=== PATIENT | male | born 1940 | race Caucasian/White ===

== ENCOUNTER 2017-06-06 14:09 | Inpatient (IN) | payer MEDICARE, MEDICAID, SELFPAY ==
[2017-06-06 14:10] VITALS: BP 124/65; PULSE 91; RESP 18; TEMP 36.4; O2SAT 97; BMI 42.7
--- NOTE | 2017-06-06 14:44 | EKG12_ITS ---
Test Reason : DYSRHYTHMIA Blood Pressure : / mmHG Vent. Rate : 098 BPM Atrial Rate : 093 BPM P-R Int : 000 ms QRS Dur : 088 ms QT Int : 362 ms P-R-T Axes : 000 033 065 degrees QTc Int : 462 ms Atrial fibrillation Low voltage QRS Abnormal ECG Confirmed by DANIEL JACKSON, BRIANDA ([id number]), medical editor STEPHANY WILLS ([id number]) on 06/09/2017 1:46:42 PM Referred By: ARI Confirmed By:BRIANDA SANCHEZ MD
--- NOTE | 2017-06-06 14:55 | RAD_ITS ---
STUDY: X-RAY CHEST REASON FOR EXAM: Male, 77 years old. Chest pain TECHNIQUE: Single AP portable view of the chest. COMPARISON: March 25, 2017 chest x-ray FINDINGS: Interstitial markings are prominent but improved since prior study. There is no demonstrated pleural abnormality. Normal size heart. Normal mediastinum and hany. Normal visualized pulmonary arteries. There is atherosclerotic calcification of the aortic arch with tortuosity. There are diffuse degenerative changes of the visualized thoracic spine. Normal visualized ribs, clavicles, and shoulders. There is postoperative change in the upper abdomen. RAD/Chest 1 View (Portable) IMPRESSION: Findings suggestive of mild interstitial edema. Improved since prior study. Electronically Signed: Kelin Waterman MD at 15:42 EST Tel , Service support ,
[2017-06-06 15:22] LABS: International Normalized Ratio 2.3; Prothrombin Time (Protime)PT. 24.1 SECONDS (11.7-14.9)
[2017-06-06 15:23] LABS: Partial Thromboplast Time 49.1 Seconds (24.1-36.2)
--- NOTE | 2017-06-06 15:27 | NURSING ---
NO LW OR POA
[2017-06-06 15:28] LABS: Absolute Lymphocyte Count 0.93 X10^3/ul (0.83-4.51); Absolute Neutrophil Count 5.4 X10^3/uL (2.0-7.7); Basophil# 0.04 X10^3/uL; Basophil% 0.5 % (0-1); Eosinophil# 0.32 X10^3/uL; Eosinophils% 4.2 % (0-5); Hematocrit 34.4 % (40-54); Lymphocyte # 0.93 X10^3/ul (4.0); Lymphocyte % 12.3 % (19-41); Mean Corpuscular Hgb 32.2 pg (27.0-32.0); Mean Corpuscular Volume 100.6 fL (80-94); Mean Platelet Vol. 8.9 fl (6.2-12.0); Monocyte# 0.77 X10^3/uL; Monocyte% 10.2 % (0-10); Neutrophil # 5.39 X10^3/uL (2.7-7.7); Neutrophil % 71.1 % (47-70); Platelet Count 246 K/mm3 (150-450); RBC Distribution Width CV 13.9 % (11.6-14.6); RBC Distribution Width SD 50.2 fl (35.1-43.9); Red Blood Count 3.42 M/mm3 (4.6-6.2); White Blood Count 7.6 K/mm3 (4.4-11.0)
[2017-06-06 15:29] LABS: POSITIVE COUNT NO; POSITIVE DIFFERENTIAL NO; POSITIVE MORPHOLOGY NO
[2017-06-06 15:32] LABS: AST(SGOT) 16 U/L (15-37); Alanine Aminotransfer ALT/SGPT 23 U/L (16-61); Albumin, Serum 3.7 g/dL (3.2-5.0); Alkaline Phosphatase 91 U/L (45-117); Anion Gap 11 (5-15); BUN 24 mg/dL (7-18); BUN/Creat Ratio 13.3 RATIO (10-20); Calcium,Total 8.8 mg/dL (8.5-10.1); Chloride 105 mmol/L (98-107); Creatinine, Serum 1.81 mg/dL (0.70-1.30); EST Glomerular Filtration Rate 39 mL/min (>60); Est Glom Filt Rate - Afr Amer 47 mL/min (>60); Estimated Creatinine Clearance 33.07 ml/min; Globulin 3.8 g/dL (2.2-4.2); Glucose 115 mg/dL (74-106); Lipase 150 U/L (73-393); Potassium 4.4 mmol/L (3.5-5.1); Protein, Total 7.5 g/dL (6.4-8.2); Sodium Level 138 mmol/L (136-145)
[2017-06-06 15:43] LABS: Lactic Acid 2.9 mmol/L (0.4-2.0)
[2017-06-06 15:56] LABS: BNP,B-Type NATRIURETIC PEPTIDE 101.6 pg/mL (0-100)
[2017-06-06 15:58] LABS: Bacteria 0 SEEN /hpf (None Seen); Mucous, Urine 0 SEEN /hpf (<or=2+); Red Blood Cells-Urine 0 SEEN /hpf (0-5); White Blood Cells 0 SEEN /hpf (0-5)
[2017-06-06 16:08] LABS: Color, Urine Yellow (Yellow); Glucose, Dipstick Normal (Normal); Ketone-Dipstick Negative (Negative); Leukocyte Esterase-Dipstick Negative /ul (Negative); Nitrite-Dipstick Negative (Negative); Occult Blood-Urine Negative /ul (Negative); Protein-Dipstick Negative (Negative); Urine Bilirubin Dipstick Negative (Negative); Urine Clarity Sl. Cloudy (Clear); Urine Urobilinogen Normal (Normal)
[2017-06-06 16:14] LABS: Squamous Epithelial Cells - UA 0-5 SEEN /hpf (0-5)
--- NOTE | 2017-06-06 16:27 | NURSING ---
DR MITCHELL FOR DR CHAPMAN
--- NOTE | 2017-06-06 16:47 | ED.VISSUMM ---
- ER Visit Summary Date of Service: 06/06/17 Chief Complaint: Leg swelling History of Present Illness: The patient is a 77 M who presents with bilateral leg swelling. He has been recently treated for lower leg cellulitis initially with cefdinir and later by Bactrim. Last dose was last night. Family states that he was admitted in March and had lymphedema but after hospitalization his ankles returned to normal. They have progressively worsened. He notes chronic spasms in the legs that is not new. He states that he has been treated with Lasix 40 mg twice a day to help the edema. He has not been able to tolerate wraps or compression stockings. He has pulmonary hypertension. He has a history of Noé, obstructive sleep apnea, type 2 diabetes, morbid obesity, and atrial fibrillation. No recent fevers. Echocardiogram in March showed ejection fraction of 60%. History is somewhat hard to obtain as multiple family members attempting to tell the story but the timeline is significantly disjointed and is very hard to follow. Physical Examination: Afebrile vital signs are stable Gen: Well-nourished well-developed Keshia obese Head: Normocephalic atraumatic Eyes: Perrl EOMI ENT: TMs clear no rhinorrhea moist mucous membranes Neck: Supple no lymphadenopathy no JVD nontender CVS: Usually irregular rhythm no murmurs normal S1-S2 Respiratory: No distress mild rales at bases chest nontender Abdomen: Soft nontender nondistended normal bowel sounds no masses Back: Nontender Extremity: Lateral lymphedema. There is faint erythema of the anterior legs that blanches seems to improve with elevation. Feet are swollen legs are swollen thighs are edematous Skin: Normal color no rash Neuro: alert orientated to place year and person Test Results: EKG shows atrial fibrillation at a rate of 98. White count is normal. Creatinine 1.81. Troponin negative nitrate peptide 101.6 lactic acid 2.9. Chest showed mild vascular congestion Emergency Department Course and Treatment: Patient's creatinine had been normal at the end of March. Is unclear exactly why this is bumped. I do not find the patient to be septic despite his lactic acid. He has no obvious source of infection no white count and no fever. This could be in part due to metformin and renal function. Our plan will be admission for diuresis. Impression: 1. Lymphedema 2. Acute kidney injury This note was generated with Dragon dictation software. It may contain incorrect words, spelling, and punctuation that were not noted in review of the chart prior to signing ED Disposition - Plan for ED Patient: Chief Complaint: Cellulitis Referrals: Mary Lou Flores DO [Primary Care Provider] -
[2017-06-06 16:57] VITALS: BP 153/90; PULSE 81; PULSE 83; RESP 19; O2SAT 96
[2017-06-06] MEDS: diazePAM 5 MG Tablet PO ×2 (17:03→21:12)
--- NOTE | 2017-06-06 17:10 | NURSING ---
DR MITCHELL IN ER
--- NOTE | 2017-06-06 17:41 | NURSING ---
DR MITCHELL IN ER [id number]
--- NOTE | 2017-06-06 17:54 | NURSING ---
318 ANASARCA, ACUTE KIDNEY INJURY PAULA
[2017-06-06 18:26] VITALS: BP 132/82; PULSE 93; RESP 18; TEMP 36.8; O2SAT 100
[2017-06-06 18:36] VITALS: BMI 42.7
[2017-06-06 18:44] VITALS: BMI 41.3
[2017-06-06 18:58] VITALS: PULSE 105
[2017-06-06 19:07] LABS: Reflex Lactate? Y
[2017-06-06] MEDS: Furosemide 500 MG in Empty Viaflex 50 mL 1 EACH CONT INF (19:32)
--- NOTE | 2017-06-06 20:07 | HP.PCM_ITS ---
Problem List (1) Bilateral leg edema Status: Acute History of Present Illness Date of Admission: 06/06/17 Chief Complaint: Bilateral leg edema The patient is a 77 year old M who was seen in the emergency room at [facility] after being brought in from assisted living by his family due to severe edema of the legs. Chronic the patient's family, they believe that this is been going on for about the last 2 weeks, patient has dementia and is an unreliable informant. He does answer simple questions appropriately however. Patient has been treated over the last 2 weeks for what was believed to be lower extremity cellulitis, he has finished a week's worth of Omnicef and then was given a week worth of Bactrim DS which he finished yesterday. Patient complains of generalized swelling of both of his legs, he does not complain of any shortness of breath, chest pain, cough, or fever. He has no complaints of any chills Evaluation in the emergency room included labs which revealed an elevated creatinine of 1.81-this is elevated over the patient's baseline creatinine, lactic acid was elevated at 2.9, beta natruretic peptide was 101.6, hemoglobin was 11, white blood cell count was normal. Urinalysis was unremarkable, chest x -ray was read out is suggestive of interstitial edema. Examination of the patient revealed severe edema both legs, there is some mild redness of the lower legs bilaterally but I feel this is probably not infectious in nature. The lower legs were not excessively warm to the touch. I feel the patient has anasarca, he will be admitted for IV Lasix therapy, he also appears to have acute kidney injury and it may be that this will improve with diuresis paradoxically. Past Medical History Past Medical History (Chronic Problems): Chronic Problems Dementia (Chronic) Macrocytic anemia (Chronic) Hypertension (Chronic) Gastroesophageal reflux disease (Chronic) Depression (Chronic) Chronic atrial fibrillation (Chronic) Anxiety disorder (Chronic) Dyslipidemia (Chronic) Chronic back pain (Chronic) On multiple pain medications DM type 2 (diabetes mellitus, type 2) (Chronic) MERLENE (obstructive sleep apnea) (Chronic) Chronic headache (Chronic) Restless leg (Chronic) Morbid obesity (Chronic) Allergies dipyridamole [From Persantine] Allergy (Verified 06/06/17 14:15) Other morphine Allergy (Verified 06/06/17 14:15) Anaphylaxis phentolamine Allergy (Verified 06/06/17 14:16) Other HEART PROBLEMS Home Medications: Ambulatory Orders Medication Instructions Recorded Ergocalciferol [Vitamin D] 50,000 unit PO MO 09/04/15 Multivitamins,Therapeutic 1 tablet PO DAILY 09/04/15 [Multivitamin] Nitroglycerin [Nitrostat] 0.4 mg SUBLINGUAL Q5M PRN 09/04/15 Tamsulosin HCl [Flomax] 0.4 mg PO DAILY 09/04/15 Diazepam [Valium] 5 mg PO Q24H PRN 03/23/17 Donepezil HCl [Aricept] 10 mg PO DAILY 03/23/17 Fentanyl [Duragesic] 25 mcg TRANSDERM. Q48H 03/23/17 Fluticasone Propionate [Flonase 1 spray NS DAILY PRN PRN 03/23/17 Allergy Relief] Furosemide [Lasix] 40 mg PO BIDLX 03/23/17 Magnesium Oxide [Mag-Ox 400] 400 mg PO DAILY 03/23/17 Meclizine HCl [Antivert] 25 mg PO 4X/DAY PRN PRN 03/23/17 Meloxicam [Mobic] 7.5 mg PO DAILY 03/23/17 Metformin HCl [Glucophage] 1,000 mg PO BIDCM 03/23/17 Ropinirole HCl [Requip] 1 mg PO BID 03/23/17 Topiramate [Topamax] 100 mg PO BID 03/23/17 Vitamin B Complex 1 each PO DAILY 03/23/17 Zolpidem Tartrate [Ambien] 5 mg PO QHS 03/23/17 Docusate Sodium [Colace] 100 mg PO QHS 03/25/17 Mag Hydrox/Al Hydrox/Simeth 30 ml PO Q4H PRN PRN 03/25/17 [Mylanta II] Oxymetazoline HCl [Nasal 2 spray NS DAILY 03/25/17 Decongestant] Polyethylene Glycol 3350 [Miralax] 17 gm PO DAILY PRN PRN 03/25/17 Sodium Chloride [Saline Mist] 1 spray NS Q12H PRN PRN 03/25/17 Diltiazem CD [Cardizem CD] 120 mg PO Q12 #60 cap 03/30/17 Rivaroxaban [Xarelto] 20 mg PO DAILY #30 tab 03/30/17 Acetaminophen [Extra Strength 1,000 mg PO 4X/DAY 06/06/17 Non-Aspirin] Amiodarone HCl 200 mg PO DAILY 06/06/17 Amitriptyline HCl [Elavil] 25 mg PO QHS 06/06/17 Atorvastatin Calcium [Lipitor] 10 mg PO QHS 06/06/17 Buspirone HCl 15 mg PO TID 06/06/17 Carbamazepine [Tegretol] 200 mg PO DAILY 06/06/17 Citalopram [Celexa] 10 mg PO DAILY 06/06/17 Cyclobenzaprine HCl 10 mg PO TID PRN 06/06/17 Metoprolol Succinate 12.5 mg PO DAILY 06/06/17 Potassium Chloride [Klor-Con M20] 20 meq PO DAILY 06/06/17 Surgical History: tonsillectomy, - - Multiple back surgeries, Shakeel fundoplication, Appendectomy, Umbilical and Inguinal hernia repairs. Psychiatric History: Anxiety, Depression, - - Dementia Lives: - - Lives in assisted living Smoking Status: Former smoker Tobacco Use: Non-smoker Alcohol: None Drugs: None - *Family History Paternal History Items: No pertinent history - age 92 Maternal History Items: Cancer - age 53, lung cancer Review of Systems Comment: Complete review of systems was unobtainable from the patient due to his dementia, his family members were present during my examination and gave medical information concerning this patient VTE Information - Inpt Only VTE Present on Admission: No VTE Mechan Device Prophylaxis: None VTE Pharm Prophylaxis ordered?: No Reason prophylaxis not ordered:: Treatment Not Indicated - Patient on Xarelto Patient Problems: Active and Suspected Problems Bilateral leg edema (Acute) - Physical Exam General: Alert, Cooperative, No apparent distress, Well developed, Well nourished, Confused - Patient has mild confusion HEENT: Atraumatic, PERRLA, EOMI, Normocephalic Oral: Moist Mucosa Neck: Supple, No JVD, Negative Carotid Bruits, No Nuchal Rigidity, Trachea Midline, Thyroid Normal Size and Texture Lungs: Clear to auscultation, Normal air movement, No rhonchi, No wheeze, No rales Cardiovascular: Regular Rhythm, Normal S1, Normal S2, No murmurs, PMI Normal, Irregular Rate, No rub noted, No Gallop Abdomen: Bowel Sounds Present, Soft, Non Tender, Non-Distended, Obese Extremities: No clubbing, No cyanosis, Capillary Refill Less than 3 Seconds, Edema - Severe generalized edema is noted over both lower extremities Skin: No breakdown, Rash Present - There is a faint rash noted over the patient' s lower legs Musculoskeletal: No Tenderness to Palpation of Joints or Extremities Neurological: Cranial nerves II-XII grossly intact, Neuro grossly intact, Sensory exam intact to light touch and pain, Coordination normal Psych/Mental Status: Normal Affect, - - Patient has some mild confusion at times but answers simple questions appropriately Vital Signs Temp Pulse Resp BP Pulse Ox 98.3 F 105 H 18 132/82 H 100 06/06/17 18:26 06/06/17 18:58 06/06/17 18:26 06/06/17 18:26 06/06/17 18:26 Oxygen Delivery Method Room Air Weight: 123.5 kg Body Mass Index (BMI) 41.3 Intake and Output for Last 24 Hours 06/04/17 06/05/17 06/06/17 23:59 23:59 23:59 Output Total 1350 / 1350 Balance -1350 / -1350 Assessment/Plan Active and Suspected Problems Bilateral leg edema (Acute) #1 anasarca-exact etiology unknown at this time, according to the patient's family, this has developed over the last 1-2 weeks.-Patient will be admitted to PCU, he will be placed on a Lasix drip at 10 mg/h, Ayoub catheter will be inserted for accurate measurement of urine-patient needs assistance getting up to the bedside commode and would not be able to provide adequate CHRISTOPHER without a catheter. #2 acute kidney injury-etiology is unclear, patient is taking a nonsteroidal anti-inflammatory at assisted living, he is also recently been placed on Bactrim DS, and finally patient has a history of type 2 diabetes which could put him at risk for a ATI. BMP will be monitored, hopefully with diuresis his renal perfusion will improve and his creatinine may decrease. 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 Patient was using large amounts of Tylenol at assisted living- 1000 mg 4 times a day programmed, I feel this is too much and I have placed him on 650 mg of Tylenol 4 times a day. #6 chronic muscle spasm of the legs-patient was on Flexeril and Valium (once a day) at his assisted living, patient states he was on more of the Valium dose at one time but his PCP reduce the dosage and he feels the Valium worked better for his muscle spasms than the Flexeril. I have decided to stop his Flexeril and place him on Valium 5 mg 3 times a day. #7 obstructive sleep apnea-patient has his own CPAP machine with the family brought in, this will be used here #8 morbid obesity-complicates care and increase his morbidity #9 atrial fibrillation-chronic, patient is on Xarelto presently at assisted living but due to the elevated creatinine, I decided to change him over to Eliquis. #10 pulmonary hypertension-, patient had an echocardiogram performed in March 2017 at this hospital which showed mild pulmonary hypertension at 46 mm and a normal ejection fraction. Mild to moderate tricuspid insufficiency was noted which could impact on his lower extremity swelling. I do not feel this needs to be repeated during this admission According to the patient's family, patient was on much more medications at one time and they alluded to the fact that the patient encourages medication administration from his physicians. Code Visit Inpatient E&M: 69477 Init Hosp L3
[2017-06-06 20:41] LABS: Lactic Acid 2.5 mmol/L (0.4-2.0)
[2017-06-06] MEDS: Pramipexole Di-HCl 0.5 MG Tablet PO (21:06)
[2017-06-06] MEDS: Amitriptyline 25 MG Tablet PO (21:06)
[2017-06-06] MEDS: Docusate Sodium 100 MG Capsule PO (21:06)
[2017-06-06] MEDS: Atorvastatin Calcium 10 MG Tablet PO (21:06)
[2017-06-06] MEDS: dilTIAZem CD 120 MG Capsule PO (21:06)
[2017-06-06] MEDS: Topiramate 100 MG Tablet PO (21:07)
[2017-06-06] MEDS: APIXABAN 5 MG TABLET PO (21:07)
[2017-06-06] MEDS: Acetaminophen 325 MG Tablet 650 MG PO (21:12)
[2017-06-06 21:20] LABS: Bedside Glucose 134 mg/dL (70-110)
[2017-06-06 22:30] VITALS: BP 95/62; PULSE 90; RESP 20; TEMP 36.5; O2SAT 99
[2017-06-06 23:02] VITALS: PULSE 84
[2017-06-06] MEDS: Zolpidem Tartrate 5 MG Tablet PO (23:11)
[2017-06-07] VITALS (11 sets, daily range): BP systolic 94–105; BP diastolic 54–62; PULSE 74–93; RESP 16–20; TEMP 36.5–36.9; O2SAT 96–99
[2017-06-07 06:26] LABS: AST(SGOT) 15 U/L (15-37); Alanine Aminotransfer ALT/SGPT 19 U/L (16-61); Albumin, Serum 3.6 g/dL (3.2-5.0); Alkaline Phosphatase 88 U/L (45-117); Anion Gap 11 (5-15); BUN 21 mg/dL (7-18); BUN/Creat Ratio 14.3 RATIO (10-20); Bilirubin, Direct 0.21 mg/dL (0.00-0.30); Calcium,Total 8.7 mg/dL (8.5-10.1); Chloride 102 mmol/L (98-107); Creatinine, Serum 1.47 mg/dL (0.70-1.30); EST Glomerular Filtration Rate 49 mL/min (>60); Est Glom Filt Rate - Afr Amer 60 mL/min (>60); Estimated Creatinine Clearance 40.71 ml/min; Globulin 3.7 g/dL (2.2-4.2); Glucose 100 mg/dL (74-106); Potassium 3.7 mmol/L (3.5-5.1); Protein, Total 7.3 g/dL (6.4-8.2); Sodium Level 138 mmol/L (136-145)
[2017-06-07 06:41] LABS: Bedside Glucose 103 mg/dL (70-110)
[2017-06-07] MEDS: diazePAM 5 MG Tablet PO ×3 (06:41→22:14)
[2017-06-07] MEDS: Tamsulosin HCl 0.4 MG Capsule PO (08:51)
[2017-06-07] MEDS: Oxymetazoline 0.05% 1 SPRAY SPRAY.BTL 2 SPRAY NS (08:52)
[2017-06-07] MEDS: Citalopram 10 MG Tablet PO (08:53)
[2017-06-07] MEDS: dilTIAZem CD 120 MG Capsule PO ×2 (08:54→22:08)
[2017-06-07] MEDS: fentaNYL 25 MCG Patch TRANSDERM. (08:54)
[2017-06-07] MEDS: Amiodarone 200 MG Tablet PO (08:54)
[2017-06-07] MEDS: APIXABAN 5 MG TABLET PO ×2 (08:54→22:08)
[2017-06-07] MEDS: Acetaminophen 325 MG Tablet 650 MG PO (08:54)
--- NOTE | 2017-06-07 09:05 | NURSING ---
wasted previous fentanyl patch from right chest with WILLIAM Freitas in toilet. medication flushed
[2017-06-07] MEDS: Metoprolol(XL)Succ 25 MG Tablet 12.5 MG PO (09:46)
[2017-06-07] MEDS: Topiramate 100 MG Tablet PO ×2 (09:47→22:08)
[2017-06-07] MEDS: carBAMazepine 200 MG Tablet PO (09:47)
[2017-06-07] MEDS: Pramipexole Di-HCl 0.5 MG Tablet PO ×2 (09:47→22:08)
[2017-06-07] MEDS: Magnesium Oxide 400 MG Tablet PO (09:47)
[2017-06-07 11:12] LABS: Bedside Glucose 134 mg/dL (70-110)
--- NOTE | 2017-06-07 13:38 | PCM.PROGNOTE ---
Patient Problems: Active and Suspected Problems Bilateral leg edema (Acute) Subjective: Pt has had little improvement in the swelling of his LE, he had a similar episode last year and reports this was due to heart problems and said 20 lbs of fluid was removed. He has no CP, SOB, or cough. He is a resident of assisted living. - Physical Exam General: Alert, Oriented x3, Cooperative HEENT: Atraumatic, PERRLA, EOMI, Normocephalic Neck: Supple, No JVD, Negative Carotid Bruits Lungs: Clear to auscultation, Normal air movement Cardiovascular: Regular rate, No murmurs Abdomen: Bowel Sounds Present, Soft, Non Tender Extremities: Capillary Refill Less than 3 Seconds, Edema - BLE edema 2+ Skin: No rashes, No breakdown Musculoskeletal: No Tenderness to Palpation of Joints or Extremities Neurological: Cranial nerves II-XII grossly intact Psych/Mental Status: Normal Affect, Appropriate, Alert and oriented to time, place, person, mood and affect Vital Signs Temp Pulse Resp BP Pulse Ox 98.2 F 88 16 100/59 L 98 06/07/17 10:23 06/07/17 11:20 06/07/17 10:23 06/07/17 10:23 06/07/17 10:23 Oxygen Delivery Method Room Air Weight: 120 kg Body Mass Index (BMI) 41.3 Intake and Output for Last 24 Hours 06/05/17 06/06/17 06/07/17 23:59 23:59 23:59 Intake Total 150 / 150 570 / 570 Output Total 3150 / 3150 3800 / 3800 Balance -3000 / -3000 -3230 / -3230 Laboratory Tests Past 24 Hrs 06/06/17 06/07/17 06/07/17 20:02 05:30 05:30 Sodium 138 Potassium 3.7 Chloride 102 Carbon Dioxide 25.0 Anion Gap 11 BUN 21 H Creatinine 1.47 H Estim Creat Clear Calc 40.71 Est GFR (MDRD) Af Amer 60 Est GFR (MDRD) Non-Af 49 L BUN/Creatinine Ratio 14.3 Glucose 100 Lactic Acid 2.5 H 1.0 Calcium 8.7 Total Bilirubin 0.50 Direct Bilirubin 0.21 AST 15 ALT 19 Alkaline Phosphatase 88 Total Protein 7.3 Albumin 3.6 Globulin 3.7 POC Glucose 06/07/17 06/07/17 06/06/17 11:04 06:33 21:04 POC Glucose 134 H 103 134 H Assessment/Plan Active and Suspected Problems Bilateral leg edema (Acute) 1. Acute diastolic CHF exacerbation - now out >6L fluid. tolerating lasix drip. Ayoub in place for accurate I/O. BNP was 101.6. CXR mild interstitial edema, no resp complaints. Echo in march, defer repeat - EF 60%, PASP 46 mmHg. No IMAN with worsened renal dysfunction. 2. Chronic AF - rate controlled - continue amio, toprol, cardizem, eliquis. Was changed from xarelto due to renal dysfunction 3. FIGUEROA - improved with lasix. 4. T2DM - sliding scale, metformin held. Check A1C. 5. CPS - continue home meds. 6. Chronic muscle spasms - at admission he was taken of flexaril and had his valium increased 7. MERLENE - using own CPAP. 8. Morbid obesty 9. Pulmonary HTN 10. Anx/Depression - home meds 11. Hx Dementia - mentation is good currently. DVT ppx: micah HERNANDEZ planning: return to assisted living when improved. This patient was seen by Shelton Pedersen PA-C under the supervision of Doctor Mohamud.
--- NOTE | 2017-06-07 15:00 | CASEMGMT ---
ROSEMARIE faxed updates to [facility]. ROSEMARIE also spoke with Sebastián, director of [facility] and let him know patient will be here a day or two. Plan: Return to [facility]. Nancy AYALA MSW
[2017-06-07 16:16] LABS: Bedside Glucose 132 mg/dL (70-110)
[2017-06-07] MEDS: Furosemide 500 MG in Empty Viaflex 50 mL 1 EACH CONT INF (16:30)
[2017-06-07] MEDS: Docusate Sodium 100 MG Capsule PO (22:08)
[2017-06-07] MEDS: Atorvastatin Calcium 10 MG Tablet PO (22:08)
[2017-06-07] MEDS: Amitriptyline 25 MG Tablet PO (22:08)
[2017-06-07] MEDS: Donepezil HCl 10 MG Tablet PO (22:08)
[2017-06-07] MEDS: Zolpidem Tartrate 5 MG Tablet PO (22:13)
[2017-06-07 22:15] LABS: Bedside Glucose 151 mg/dL (70-110)
[2017-06-08] VITALS (11 sets, daily range): BP systolic 101–105; BP diastolic 54–63; PULSE 75–92; RESP 16–18; TEMP 36.6; O2SAT 97–98
[2017-06-08] MEDS: diazePAM 5 MG Tablet PO ×3 (05:35→22:46)
[2017-06-08 06:06] LABS: Anion Gap 10 (5-15); BUN 23 mg/dL (7-18); BUN/Creat Ratio 14.1 RATIO (10-20); Calcium,Total 8.7 mg/dL (8.5-10.1); Chloride 99 mmol/L (98-107); Creatinine, Serum 1.63 mg/dL (0.70-1.30); EST Glomerular Filtration Rate 44 mL/min (>60); Est Glom Filt Rate - Afr Amer 53 mL/min (>60); Estimated Creatinine Clearance 36.72 ml/min; Glucose 106 mg/dL (74-106); Potassium 3.4 mmol/L (3.5-5.1); Sodium Level 137 mmol/L (136-145)
[2017-06-08] MEDS: Acetaminophen 325 MG Tablet 650 MG PO (06:38)
[2017-06-08 06:50] LABS: Bedside Glucose 104 mg/dL (70-110)
[2017-06-08] MEDS: Metoprolol(XL)Succ 25 MG Tablet 12.5 MG PO (08:59)
[2017-06-08] MEDS: carBAMazepine 200 MG Tablet PO (08:59)
[2017-06-08] MEDS: Topiramate 100 MG Tablet PO ×2 (08:59→22:46)
[2017-06-08] MEDS: Magnesium Oxide 400 MG Tablet PO (09:00)
[2017-06-08] MEDS: Pramipexole Di-HCl 0.5 MG Tablet PO ×2 (09:00→22:46)
[2017-06-08] MEDS: APIXABAN 5 MG TABLET PO ×2 (09:00→22:46)
[2017-06-08] MEDS: dilTIAZem CD 120 MG Capsule PO ×2 (09:00→22:46)
[2017-06-08] MEDS: Amiodarone 200 MG Tablet PO (09:00)
[2017-06-08] MEDS: Citalopram 10 MG Tablet PO (09:00)
[2017-06-08] MEDS: Oxymetazoline 0.05% 1 SPRAY SPRAY.BTL 2 SPRAY NS (09:00)
[2017-06-08] MEDS: Tamsulosin HCl 0.4 MG Capsule PO (09:00)
[2017-06-08] MEDS: Furosemide 40 MG/4 ML Vial IV ×2 (09:10→17:17)
[2017-06-08 10:31] LABS: Bedside Glucose 121 mg/dL (70-110)
--- NOTE | 2017-06-08 11:48 | CASEMGMT ---
Today in rounds physician said patient will likely be ready tomorrow. ROSEMARIE faxed PT/OT evaluations to Sebastián at [facility] and wrote a note letting him know possible d/c tomorrow. Plan: Return to [facility]. Nancy AYALA MSW
--- NOTE | 2017-06-08 13:08 | PCM.PROGNOTE ---
Patient Problems: Active and Suspected Problems Bilateral leg edema (Acute) Subjective: Pt reports no new symptoms. He has not looked at his legs today - when showed his legs he was surprised at how much the edema had improved. He has no repsiratory complaints, no CP, no SOB, exertional dyspnea. He still has the harry in place which he did not come in with. He will have a voiding trial. He is anxious about returning home as he has been in and out of the hospital several times, but he is also anxious about going on a higher dose of lasix as he will be urinating more often. He did well with therapy and does not need further skilled. - Physical Exam General: Alert, Oriented x3, Cooperative HEENT: Atraumatic, PERRLA, EOMI, Normocephalic Neck: Supple, No JVD, Negative Carotid Bruits Lungs: Clear to auscultation, Normal air movement Cardiovascular: Regular rate, No murmurs Abdomen: Bowel Sounds Present, Soft, Non Tender Extremities: No edema, Capillary Refill Less than 3 Seconds, Edema - significantly decreased Skin: No rashes, No breakdown Musculoskeletal: No Tenderness to Palpation of Joints or Extremities Neurological: Cranial nerves II-XII grossly intact Psych/Mental Status: Normal Affect, Appropriate, Alert and oriented to time, place, person, mood and affect Vital Signs Temp Pulse Resp BP Pulse Ox 97.9 F 83 18 101/56 L 97 06/08/17 09:52 06/08/17 11:17 06/08/17 09:52 06/08/17 09:52 06/08/17 09:52 Oxygen Delivery Method Room Air Weight: 116.6 kg Body Mass Index (BMI) 41.3 Intake and Output for Last 24 Hours 06/06/17 06/07/17 06/08/17 23:59 23:59 23:59 Intake Total 150 / 150 930 / 930 702 / 702 Output Total 3150 / 3150 4900 / 4900 3225 / 3225 Balance -3000 / -3000 -3970 / -3970 -2523 / -2523 Laboratory Tests Past 24 Hrs 06/08/17 05:30 Sodium 137 Potassium 3.4 L Chloride 99 Carbon Dioxide 28.0 Anion Gap 10 BUN 23 H Creatinine 1.63 H Estim Creat Clear Calc 36.72 Est GFR (MDRD) Af Amer 53 L Est GFR (MDRD) Non-Af 44 L BUN/Creatinine Ratio 14.1 Glucose 106 Calcium 8.7 POC Glucose 06/08/17 06/08/17 06/07/17 10:24 06:43 22:07 POC Glucose 121 H 104 151 H 06/07/17 16:01 POC Glucose 132 H Assessment/Plan Active and Suspected Problems Bilateral leg edema (Acute) 1. Acute diastolic CHF exacerbation - lasix drip stopped, to 40 IV BID. Plan to start 80 BID tomorrow. 2. Chronic AF - rate controlled - continue amio, toprol, cardizem, eliquis. Was changed from xarelto due to renal dysfunction 3. FIGUEROA - bumped up, lasix adjusted. Recheck tomorrow. 4. T2DM - sliding scale, metformin held. A1C demonstrates good control. 5. CPS - continue home meds. 6. Chronic muscle spasms - at admission he was taken off of flexaril and had his valium increased 7. MERLENE - using own CPAP. 8. Morbid obesity 9. Pulmonary HTN 10. Anx/Depression - home meds 11. Hx Dementia - mentation is good currently. 12. Hypokalemia - repleted, check in AM. DVT ppx: micah HERNANDEZ planning: return to assisted living when improved. This patient was seen by Shelton Pedersen PA-C under the supervision of Doctor Mohamud.
[2017-06-08 16:31] LABS: Bedside Glucose 156 mg/dL (70-110)
[2017-06-08] MEDS: Amitriptyline 25 MG Tablet PO (22:46)
[2017-06-08] MEDS: Docusate Sodium 100 MG Capsule PO (22:46)
[2017-06-08] MEDS: Donepezil HCl 10 MG Tablet PO (22:46)
[2017-06-08] MEDS: Atorvastatin Calcium 10 MG Tablet PO (22:46)
[2017-06-08 22:56] LABS: Bedside Glucose 147 mg/dL (70-110)
[2017-06-09] VITALS (7 sets, daily range): BP systolic 107–125; BP diastolic 51–72; PULSE 61–98; RESP 15–18; TEMP 36.4–36.7; O2SAT 93–99
[2017-06-09] MEDS: Acetaminophen 325 MG Tablet 650 MG PO ×2 (03:26→09:55)
[2017-06-09] MEDS: diazePAM 5 MG Tablet PO ×2 (05:41→14:19)
[2017-06-09 06:17] LABS: Anion Gap 9 (5-15); BUN 22 mg/dL (7-18); BUN/Creat Ratio 15.7 RATIO (10-20); Calcium,Total 9.1 mg/dL (8.5-10.1); Chloride 100 mmol/L (98-107); EST Glomerular Filtration Rate 52 mL/min (>60); Est Glom Filt Rate - Afr Amer 63 mL/min (>60); Estimated Creatinine Clearance 42.75 ml/min; Glucose 111 mg/dL (74-106); Potassium 3.6 mmol/L (3.5-5.1); Sodium Level 135 mmol/L (136-145)
[2017-06-09 07:01] LABS: Bedside Glucose 127 mg/dL (70-110)
[2017-06-09] MEDS: Tamsulosin HCl 0.4 MG Capsule PO (08:28)
[2017-06-09] MEDS: Oxymetazoline 0.05% 1 SPRAY SPRAY.BTL 2 SPRAY NS (09:56)
[2017-06-09] MEDS: Citalopram 10 MG Tablet PO (09:56)
[2017-06-09] MEDS: dilTIAZem CD 120 MG Capsule PO (09:56)
[2017-06-09] MEDS: Amiodarone 200 MG Tablet PO (09:56)
[2017-06-09] MEDS: carBAMazepine 200 MG Tablet PO (09:57)
[2017-06-09] MEDS: Magnesium Oxide 400 MG Tablet PO (09:57)
[2017-06-09] MEDS: Pramipexole Di-HCl 0.5 MG Tablet PO (09:57)
[2017-06-09] MEDS: APIXABAN 5 MG TABLET PO (09:57)
[2017-06-09] MEDS: Topiramate 100 MG Tablet PO (09:59)
[2017-06-09] MEDS: Metoprolol(XL)Succ 25 MG Tablet 12.5 MG PO (10:04)
--- NOTE | 2017-06-09 10:04 | CASEMGMT ---
WILLIAM GANDHI spoke with TAL Krause, re: patient is ready for discharge back to [facility] today. WILLIAM GANDHI notified ROSEMARIE Irby, who will follow for transition back to [facility]. ANGEL Lynne, RN-, CCM
[2017-06-09] MEDS: fentaNYL 25 MCG Patch TRANSDERM. (10:22)
--- NOTE | 2017-06-09 10:25 | CASEMGMT ---
ROSEMARIE spoke with Sebastián from [facility] and let him know patient will be returning today. SW will let him know when SW knows a time. Nancy AYALA MSW
[2017-06-09] MEDS: Furosemide 80 MG Tablet PO (10:40)
--- NOTE | 2017-06-09 10:44 | CASEMGMT ---
ROSEMARIE spoke with patient and he would need transport back to [facility]. ROSEMARIE told him that van is not covered by insurance and gave him the approximate cost. He said he has gone back via the hospital van before. He said he could get in and out of the van on his own. He said he does not have $100. ROSEMARIE told him we will work on setting up transport via hospital van. ROSEMARIE then noticed patient has Medicaid so van would be covered. Plan: back to [facility]. Nancy DE LA ROSA
[2017-06-09 11:41] LABS: Bedside Glucose 127 mg/dL (70-110)
--- NOTE | 2017-06-09 11:51 | PCM.DC ---
- Discharge Diagnoses Current Active Problems: Current Active and Chronic Problems Bilateral leg edema (Acute) You will use the following diet at home:: Calorie/Carbohydrate Controlled (specify 1200, 1400, etc) - 1800 supa/ day, Cardiac - 2g sodium per day Your food should be the consistency of: Regular Your liquids should be the consistency of: Regular/Thin Discharge Activity: Return to Normal Activity Additional Instructions: Elevate legs at rest, apply compression socks or Jaziel wraps to bilateral lower extremities daily during the day, off at night. Allergies/Adverse Reactions: Allergies dipyridamole [From Persantine] Allergy (Verified 06/06/17 14:15) Other morphine Allergy (Verified 06/06/17 14:15) Anaphylaxis phentolamine Allergy (Verified 06/06/17 14:16) Other HEART PROBLEMS Medications to take at Discharge Ergocalciferol [Vitamin D] 50,000 unit PO MO 09/04/15 Multivitamins,Therapeutic [Multivitamin] 1 tablet PO DAILY 09/04/15 Nitroglycerin [Nitrostat] 0.4 mg SUBLINGUAL Q5M PRN 09/04/15 Tamsulosin HCl [Flomax] 0.4 mg PO DAILY 09/04/15 Diazepam [Valium] 5 mg PO Q24H PRN 03/23/17 Donepezil HCl [Aricept] 10 mg PO DAILY 03/23/17 Fentanyl [Duragesic] 25 mcg TRANSDERM. Q48H 03/23/17 Fluticasone Propionate [Flonase Allergy Relief] 1 spray NS DAILY PRN PRN 03/23/17 Magnesium Oxide [Mag-Ox 400] 400 mg PO DAILY 03/23/17 Meclizine HCl [Antivert] 25 mg PO 4X/DAY PRN PRN 03/23/17 Meloxicam [Mobic] 7.5 mg PO DAILY 03/23/17 Metformin HCl [Glucophage] 1,000 mg PO BIDCM 03/23/17 Ropinirole HCl [Requip] 1 mg PO BID 03/23/17 Topiramate [Topamax] 100 mg PO BID 03/23/17 Vitamin B Complex 1 each PO DAILY 03/23/17 Zolpidem Tartrate [Ambien] 5 mg PO QHS 03/23/17 Docusate Sodium [Colace] 100 mg PO QHS 03/25/17 Mag Hydrox/Al Hydrox/Simeth [Mylanta II] 30 ml PO Q4H PRN PRN 03/25/17 Oxymetazoline HCl [Nasal Decongestant] 2 spray NS DAILY 03/25/17 Polyethylene Glycol 3350 [Miralax] 17 gm PO DAILY PRN PRN 03/25/17 Sodium Chloride [Saline Mist] 1 spray NS Q12H PRN PRN 03/25/17 Diltiazem CD [Cardizem CD] 120 mg PO Q12 #60 cap 03/30/17 Acetaminophen [Extra Strength Non-Aspirin] 1,000 mg PO 4X/DAY 06/06/17 Amiodarone HCl 200 mg PO DAILY 06/06/17 Amitriptyline HCl [Elavil] 25 mg PO QHS 06/06/17 Atorvastatin Calcium [Lipitor] 10 mg PO QHS 06/06/17 Buspirone HCl 15 mg PO TID 06/06/17 Carbamazepine [Tegretol] 200 mg PO DAILY 06/06/17 Citalopram [Celexa] 10 mg PO DAILY 06/06/17 Cyclobenzaprine HCl 10 mg PO TID PRN 06/06/17 Metoprolol Succinate 12.5 mg PO DAILY 06/06/17 Apixaban [Eliquis] 5 mg PO BID #60 tab 06/09/17 Furosemide [Lasix] 80 mg PO BID@1000,1800 #60 tab 06/09/17 Potassium Chloride [K-Dur] 20 meq PO BIDCM #60 tab 06/09/17 The following prescriptions were given: Apixaban [Eliquis] 5 mg PO BID #60 tab Furosemide [Lasix] 80 mg PO BID@1000,1800 #60 tab Potassium Chloride [K-Dur] 20 meq PO BIDCM #60 tab Orders to be completed after discharge: Basic Metabolic Profile (BMP) Time Frame: 3 Days, Location: Laboratory Primary Care Physician: Mary Lou Flores DO [Primary Care Provider] - Please follow up with your Primary Care Physician in: 1 week Proposed Discharge Date: 06/09/17
--- NOTE | 2017-06-09 12:15 | CASEMGMT ---
ROSEMARIE faxed d/c instructions to [facility]. ROSEMARIE called [facility] van transport and Kiara said his daughter called and said she was going to transport him. ROSEMARIE then spoke with patient and he said that is fine. SW is not able to get a hold of her as we only have her home phone. ROSEMARIE called Sebastián at [facility] and let him know this information. The receptionist secretary then said that she spoke with the daughter in law and she asked that the hospital notify her when patient is ready and she will pick him up. When ROSEMARIE finds out a time will let Sebastián at [facility] know. Plan: Return to [facility] [place]. Family will transport. Nancy AYALA [employer]
--- NOTE | 2017-06-09 12:19 | CASEMGMT ---
WILLIAM GANDHI notified patient will discharge on Eliquis instead of his already prescribed Xarelto, per Shelton Pedersen PA-C, due to kidney function. WILLIAM GANDHI called [facility] [employer] and found patient will have a $0/co-pay. PIERCE LynneN, RN-BC, CCM
--- NOTE | 2017-06-09 13:42 | PCM.DC.SUM ---
<Shelton Pedersen - Last Filed: 06/09/17 13:42> Discharge Date and Diagnosis Date of Admission: 06/06/17 Date of Discharge: 06/09/17 - Primary Discharge Diagnosis Active and Suspected Problems Acute on chronic diastolic CHF exacerbation Chronic AF FIGUEROA T2DM CPS/Chronic muscle spasms Morbid obesity Pulmonary HTN Anx/Depression Dementia Hypokalemia - Secondary Discharge Diagnosis Chronic Problems Dementia (Chronic) Macrocytic anemia (Chronic) Hypertension (Chronic) Gastroesophageal reflux disease (Chronic) Depression (Chronic) Chronic atrial fibrillation (Chronic) Anxiety disorder (Chronic) Dyslipidemia (Chronic) Chronic back pain (Chronic) On multiple pain medications DM type 2 (diabetes mellitus, type 2) (Chronic) MERLENE (obstructive sleep apnea) (Chronic) Chronic headache (Chronic) Restless leg (Chronic) Morbid obesity (Chronic) Hospital Course and Treatment Imaging Results: RAD/Chest 1 View (Portable) IMPRESSION: Findings suggestive of mild interstitial edema. Improved since prior study. Operations: None Procedures: None Summary of Care Provided: Physical exam on day of discharge: General: Resting comfortably NAD Psych: A/Ox3 normal affect HEENT: PEARRLA AT NC Neck: Supple NT CV: RRR no m/t/r/g/h Resp: CTA Abd: [id number] Soft NT no guarding or rigidity Ext: DP2+= nonpitting edema, significant improvement, skin is midly erythematous and tender to palp, now significant wrinkling present. No drainage or open wounds Skin: W/D normal turgor Lymph/Heme: No active bleeding or adenopathy Neuro: CN2-12 intact Hospital course: The patient is a 77 year old M with a history of diastolic congestive heart failure, chronic atrial fibrillation, type 2 diabetes, obstructive sleep apnea, morbid obesity, pulmonary hypertension, dementia who presented to the emergency room from assisted living with severe swelling of his bilateral lower extremities. In March of last year for diastolic congestive heart failure and atrial fibrillation with rapid ventricular response. On presentation he had an elevated BNP, he had AK I, severe pitting edema, no respiratory complaints, negative chest x-ray, was felt to be in another diastolic congestive heart failure exacerbation. He is admitted to telemetry and placed on a Lasix drip. His renal function and his pitting edema improved significantly in response to IV diuresis. Due to his renal dysfunction he was transitioned from Xarelto to Eliquis. He had an echocardiogram done March, last admission, EF at that time was 60%. Repeat was deferred at this time. Pulmonary artery systolic pressure of 46 mmHg at that time. He is Victor Hugo on a beta-gloria, JAZIEL inhibitor was not started due to his renal dysfunction. He seen by physical therapy and occupational therapy and determined to have no further needs. He is transition to p.o. Lasix. He remained in stable condition and was discharged back to assisted living with a higher dose of home Lasix, increased potassium, started on Eliquis. He is advised strongly to use Jaziel wraps and elevate his legs while at rest. He will need to follow-up closely with his PCP in 1-2 weeks. He will need a BMP drawn within the next week. This patient was seen by Shelton Pedersen PA-C under the supervision of Doctor Oneida. [] Discharge Diet: 1800 Calorie Control Diet, 2000 mg Sodium Diet Discharge Activity: Return to Normal Activity Home Medications: Medications to take at Discharge Ergocalciferol [Vitamin D] 50,000 unit PO MO 09/04/15 Multivitamins,Therapeutic [Multivitamin] 1 tablet PO DAILY 09/04/15 Nitroglycerin [Nitrostat] 0.4 mg SUBLINGUAL Q5M PRN 09/04/15 Tamsulosin HCl [Flomax] 0.4 mg PO DAILY 09/04/15 Diazepam [Valium] 5 mg PO Q24H PRN 03/23/17 Donepezil HCl [Aricept] 10 mg PO DAILY 03/23/17 Fentanyl [Duragesic] 25 mcg TRANSDERM. Q48H 03/23/17 Fluticasone Propionate [Flonase Allergy Relief] 1 spray NS DAILY PRN PRN 03/23/17 Magnesium Oxide [Mag-Ox 400] 400 mg PO DAILY 03/23/17 Meclizine HCl [Antivert] 25 mg PO 4X/DAY PRN PRN 03/23/17 Meloxicam [Mobic] 7.5 mg PO DAILY 03/23/17 Metformin HCl [Glucophage] 1,000 mg PO BIDCM 03/23/17 Ropinirole HCl [Requip] 1 mg PO BID 03/23/17 Topiramate [Topamax] 100 mg PO BID 03/23/17 Vitamin B Complex 1 each PO DAILY 03/23/17 Zolpidem Tartrate [Ambien] 5 mg PO QHS 03/23/17 Docusate Sodium [Colace] 100 mg PO QHS 03/25/17 Mag Hydrox/Al Hydrox/Simeth [Mylanta II] 30 ml PO Q4H PRN PRN 03/25/17 Oxymetazoline HCl [Nasal Decongestant] 2 spray NS DAILY 03/25/17 Polyethylene Glycol 3350 [Miralax] 17 gm PO DAILY PRN PRN 03/25/17 Sodium Chloride [Saline Mist] 1 spray NS Q12H PRN PRN 03/25/17 Diltiazem CD [Cardizem CD] 120 mg PO Q12 #60 cap 03/30/17 Acetaminophen [Extra Strength Non-Aspirin] 1,000 mg PO 4X/DAY 06/06/17 Amiodarone HCl 200 mg PO DAILY 06/06/17 Amitriptyline HCl [Elavil] 25 mg PO QHS 06/06/17 Atorvastatin Calcium [Lipitor] 10 mg PO QHS 06/06/17 Buspirone HCl 15 mg PO TID 06/06/17 Carbamazepine [Tegretol] 200 mg PO DAILY 06/06/17 Citalopram [Celexa] 10 mg PO DAILY 06/06/17 Cyclobenzaprine HCl 10 mg PO TID PRN 06/06/17 Metoprolol Succinate 12.5 mg PO DAILY 06/06/17 Apixaban [Eliquis] 5 mg PO BID #60 tab 06/09/17 Furosemide [Lasix] 80 mg PO BID@1000,1800 #60 tab 06/09/17 Potassium Chloride [K-Dur] 20 meq PO BIDCM #60 tab 06/09/17 Following Prescrptions Were Given to Patient: Apixaban [Eliquis] 5 mg PO BID #60 tab Furosemide [Lasix] 80 mg PO BID@1000,1800 #60 tab Potassium Chloride [K-Dur] 20 meq PO BIDCM #60 tab Primary Care Physician: Mary Lou Flores DO [Primary Care Provider] - Please follow up with your Primary Care Physician in: 1 week Disposition: Asstd Living/Non-Skill NH Minutes spent on discharge:: 40 Patient Condition:: Stable Meaningful Use Info Meaningful Use Diagnoses (Choose all that apply): CHF - CHF JAZIEL/ARB ordered at discharge?: No Reason JAZIEL/ARB not ordered?: Worsening renal disease Documented LVEF (%): 60 <Ravi Mohamud - Last Filed: 06/14/17 12:04> Discharge Date and Diagnosis - Secondary Discharge Diagnosis Chronic Problems Dementia (Chronic) Macrocytic anemia (Chronic) Hypertension (Chronic) Gastroesophageal reflux disease (Chronic) Depression (Chronic) Chronic atrial fibrillation (Chronic) Anxiety disorder (Chronic) Dyslipidemia (Chronic) Chronic back pain (Chronic) On multiple pain medications DM type 2 (diabetes mellitus, type 2) (Chronic) MERLENE (obstructive sleep apnea) (Chronic) Chronic headache (Chronic) Restless leg (Chronic) Morbid obesity (Chronic) Hospital Course and Treatment Summary of Care Provided: The patient is a 77 year old M [] Code Visit This patient was seen in conjunction with Shelton PARADA. I have independently interviewed and examined the patient and reviewed pertinent historical, laboratory and other data. Please refer to discharge summary note for details of this patient's presentation, findings and recommendations. I have reviewed Shelton's note and concur fully with documented findings. In brief, patient is a 77YO male admitted with acute on chronic diastolic congestive heart failure. He has had recurrent admissions for swelling in his legs and he is not compliant with salt restriction, elevation or compressions. He had no respiratory complaints are he primarily has cor pulmonale at this admission. He was started on IV Lasix and a 2 GM sodium diet was ordered. His legs were elevated and wrapped in Jaziel wraps. He diuresed quite well and was transitioned to p.o. Lasix. Physical examination: Heart and oriented ?3, no apparent discomfort. Lungs-clear to auscultation. Heart-regular rate and rhythm with no gallop. Mild nonpitting edema of both lower extremities which was significantly improved from admission. Assessment: Acute on chronic diastolic congestive heart failure Discharged on an increased dose of Lasix and a 2 g sodium diet. I have discussed my assessment with CT and orders have been written. Inpatient E&M: [id number] Disch Hosp
--- NOTE | 2017-06-09 16:13 | NURSING ---
REPORT CALLED TO YO ROSE RN AT [facility]
== END 2017-06-09 16:07 | disposition home or self-care (01) | DRG 292 ==
LOC: ED 17:49 → PCU 18:20
PROVIDERS: Internal Medicine; Physician Assistant; Admitting Provider Internal Medicine; Emergency Provider Emergency Medicine; Family Provider Internal Medicine; PCP Internal Medicine; Visit Provider Internal Medicine
DX: I11.0 Hypertensive heart disease with heart failure (principal); I50.33 Acute on chronic diastolic (congestive) heart failure; N17.9 Acute kidney failure, unspecified; I27.20 Pulmonary hypertension, unspecified; E66.01 Morbid (severe) obesity due to excess calories; I48.2 Chronic atrial fibrillation; E11.9 Type 2 diabetes mellitus without complications; D53.9 Nutritional anemia, unspecified; Z68.41 Body mass index [BMI] 40.0-44.9, adult; G25.81 Restless legs syndrome; E78.5 Hyperlipidemia, unspecified; E87.6 Hypokalemia; F03.90 Unspecified dementia, unspecified severity, without behavioral disturbance, psychotic disturbance, mood disturbance, and anxiety; Z66 Do not resuscitate; Z87.891 Personal history of nicotine dependence; Z79.84 Long term (current) use of oral hypoglycemic drugs; G47.33 Obstructive sleep apnea (adult) (pediatric); Z79.01 Long term (current) use of anticoagulants; M62.838 Other muscle spasm; F32.9 Major depressive disorder, single episode, unspecified; F41.9 Anxiety disorder, unspecified; M54.9 Dorsalgia, unspecified; K21.9 Gastro-esophageal reflux disease without esophagitis; G89.4 Chronic pain syndrome
CPT/HCPCS: 36415; 71045; 80048; 80053; 80076; 81001; 82962; 83605; 83690; 83880; 84484; 85025; 85610; 85730; 87040; 93005; 97161; 97166; 97802; 99282; A4216; J1940

== ENCOUNTER 2017-06-16 16:26 | Emergency (ER) | payer MEDICARE, MEDICAID, SELFPAY ==
[2017-06-16 16:27] VITALS: BP 138/45; PULSE 80; RESP 16; TEMP 37.1; O2SAT 100; BMI 41.2
--- NOTE | 2017-06-16 18:03 | RAD_ITS ---
STUDY: X-RAY - RIGHT KNEE REASON FOR EXAM: Male, 77 years old. Edema swelling and pain TECHNIQUE: 2 view(s) of the knee. COMPARISON: None. FINDINGS: Normal visualized distal femur. Normal visualized proximal tibia and fibula. Normal proximal tibiofibular articulation. There is mild degenerative arthrosis of the medial femorotibial compartment. Normal lateral femorotibial compartment. Normal patellofemoral articulation. Diffuse soft tissue swelling. Negative for foreign body. Negative for emphysematous changes. RAD/Knee 1 or 2 Views IMPRESSION: Diffuse soft tissue swelling without underlying acute bone or joint findings. Negative for fracture, osteolytic or blastic bone lesion. Negative for substantial joint effusion. Mild degenerative narrowing of the medial compartment of the knee. Electronically Signed: Paula Mccartney MD at 19:41 EST , Service support ,
--- NOTE | 2017-06-16 18:03 | EKG12_ITS ---
Test Reason : EDEMA Blood Pressure : / mmHG Vent. Rate : 078 BPM Atrial Rate : 288 BPM P-R Int : 000 ms QRS Dur : 100 ms QT Int : 390 ms P-R-T Axes : 000 028 064 degrees QTc Int : 444 ms Atrial flutter with variable A-V block Abnormal ECG Confirmed by DANIEL JACKSON, BRIANDA ([id number]), electronic news gathering editor STEPHANY WILLS ([id number]) on 06/21/2017 2:23:37 PM Referred By: STEVEN Confirmed By:BRIANDA SANCHEZ MD
--- NOTE | 2017-06-16 18:09 | ED.VISSUMM ---
- ER Visit Summary Date of Service: 06/16/17 Chief Complaint: Lower extremity swelling History of Present Illness: The patient is a 77 M who presents with lower extremity swelling that has been getting worse over the past week. Patient was recently admitted to the hospital and was placed on Lasix IV drip. Patient states he lost 20 pounds at that time. Patient states he has gained 4 pounds recently. Patient states his Lasix was increased to 80 mg twice daily upon discharge.. Patient states he has had decreased urine output with this increase in dose. Patient states he does get short of breath if he walks down a long hallway. Patient denies any chest pain. Patient denies any nausea or vomiting. Patient admits to a mild headache. Physical Examination: Vital signs are stable. Patient is afebrile. Patient is in no acute distress. Oral mucosa is pink and moist. Neck is supple. Trachea is midline. There is no lymphadenopathy noted. Heart was regular rate and rhythm. Lungs showed a few bibasilar rales. There is good respiratory effort noted. Abdomen is soft. Bowel sounds are normal. There is no tenderness noted. Extremities were intact. There is 4+ edema of the lower extremities bilaterally. Cranial nerves II through XII are intact. There are no focal motor or sensory deficits noted. Test Results: Chest x-ray does not show any acute cardiopulmonary process. Ultrasound of the right lower extremity was negative for any DVT. X-ray of the right knee was obtained and did not show any acute fracture. There is some soft tissue swelling noted. EKG showed atrial flutter with a rate of 78. There are no acute ST or T-wave changes. This was unchanged compared to previous EKG dated 06/06/2017. Hemoglobin was 11.4. Hematocrit was 35.1. BUN was 29 and creatinine was 1.6. These were all unchanged compared to previous result. Troponin was normal. BNP was normal at 101.9. Emergency Department Course and Treatment: Patient was given 2 doses of Dilaudid here in the emergency department. Patient states he still gets pain and spasms in his right lower extremity. Patient requested to be admitted to the hospital for persistent pain and spasms. Case was discussed with the hospitalist. He does not feel the patient warrants admission to the hospital. Patient will be discharged back to his assisted living. Patient was given a prescription for Percocet for pain. Patient was instructed to continue his Valium as previously prescribed. Patient was instructed to continue all of his other medications as previously prescribed. Patient and family understood and were agreeable with the plan. All questions were answered. Disposition: Discharge home Impression: Lower extremity edema This note was generated with HedgeChatter dictation software. It may contain incorrect words, spelling, and punctuation that were not noted in review of the chart prior to signing ED Disposition - Plan for ED Patient: Disposition: Home or Assisted Living Chief Complaint: Edema Diagnosis: Lower leg edema Instructions: ED Leg Swelling Bilateral Referrals: Mary Lou Flores DO [Primary Care Provider] -
[2017-06-16] MEDS: Furosemide 100 MG/10 ML Vial 80 MG IV (18:16)
[2017-06-16 18:23] VITALS: BP 130/90; PULSE 96; RESP 17; O2SAT 96
--- NOTE | 2017-06-16 18:27 | US_ITS ---
STUDY: VENOUS DOPPLER ULTRASOUND - RIGHT LOWER EXTREMITY REASON FOR EXAM: Male, 77 years old. Right medial knee pain and swelling. Swelling and redness of the lower extremity. TECHNIQUE: Ultrasound evaluation of the deep vein system to include salazar-scale imaging and compression was performed. Salazar-scale imaging and Doppler sonographic evaluation, including duplex spectral analysis and qualitative color flow sonography, was performed. COMPARISON: None. FINDINGS: Common Femoral Vein: Normal compression, spontaneity and augmentation. Normal color Doppler. Common Femoral Vein/Greater Saphenous Junction: Normal compression with no internal echoes. Deep Femoral Vein: Not visualized. Femoral Proximal: Normal compression with no internal echoes. Femoral Middle: Normal compression, spontaneity and augmentation. Normal color Doppler. Femoral Distal: Normal compression with no internal echoes. Popliteal Vein: Normal compression, spontaneity and augmentation. Normal color Doppler. Posterior Tibial Vein: Normal compression Peroneal Vein: Normal compression US/Venous Duplex Imag/Limited/Uni IMPRESSION: Right lower extremity venous Doppler exam negative for deep venous thrombosis. Electronically Signed: Paula Mccartney MD at 20:08 EST , Service support ,
[2017-06-16 18:28] LABS: Absolute Lymphocyte Count 1.42 X10^3/ul (0.83-4.51); Absolute Neutrophil Count 4.8 X10^3/uL (2.0-7.7); Basophil# 0.04 X10^3/uL; Basophil% 0.5 % (0-1); Eosinophil# 0.46 X10^3/uL; Hematocrit 35.1 % (40-54); Hemoglobin 11.4 g/dl (13.0-16.5); Lymphocyte # 1.42 X10^3/ul (4.0); Lymphocyte % 18.6 % (19-41); Mean Corp Hgb Conc 32.5 g/gl (32-36); Mean Corpuscular Volume 101.7 fL (80-94); Mean Platelet Vol. 8.8 fl (6.2-12.0); Monocyte# 0.79 X10^3/uL; Monocyte% 10.3 % (0-10); Neutrophil # 4.77 X10^3/uL (2.7-7.7); Neutrophil % 62.5 % (47-70); Platelet Count 274 K/mm3 (150-450); RBC Distribution Width CV 13.6 % (11.6-14.6); RBC Distribution Width SD 49.4 fl (35.1-43.9); Red Blood Count 3.45 M/mm3 (4.6-6.2); White Blood Count 7.6 K/mm3 (4.4-11.0)
[2017-06-16 18:31] LABS: International Normalized Ratio 1.4; Prothrombin Time (Protime)PT. 16.9 SECONDS (11.7-14.9)
[2017-06-16 18:33] LABS: POSITIVE COUNT YES; POSITIVE DIFFERENTIAL NO; POSITIVE MORPHOLOGY YES
[2017-06-16 18:45] LABS: Anion Gap 9 (5-15); BUN 29 mg/dL (7-18); BUN/Creat Ratio 18.1 RATIO (10-20); Calcium,Total 8.4 mg/dL (8.5-10.1); Chloride 105 mmol/L (98-107); EST Glomerular Filtration Rate 45 mL/min (>60); Est Glom Filt Rate - Afr Amer 54 mL/min (>60); Estimated Creatinine Clearance 37.41 ml/min; Glucose 93 mg/dL (74-106); Potassium 4.1 mmol/L (3.5-5.1); Sodium Level 137 mmol/L (136-145)
[2017-06-16 18:56] LABS: BNP,B-Type NATRIURETIC PEPTIDE 101.9 pg/mL (0-100)
--- NOTE | 2017-06-16 19:22 | RAD_ITS ---
STUDY: X-RAY CHEST REASON FOR EXAM: Male, 77 years old. Lower extremity edema. TECHNIQUE: 2 views COMPARISON: Prior chest radiograph of June 06, 2017. FINDINGS: The lung swanson are well-expanded without new consolidation, focal atelectasis or a substantial pleural effusion. Calcified granuloma in the mid left lung. Normal size heart. Normal mediastinum and hany. Normal visualized pulmonary arteries. There is atherosclerotic calcification of the aortic arch with tortuosity. There are diffuse degenerative changes of the visualized thoracic spine. Normal visualized ribs, clavicles, and shoulders. Multiple clips of the medial left upper quadrant. RAD/Chest PA and Lateral IMPRESSION: No acute cardiopulmonary findings or changes. Negative for new consolidation, focal atelectasis, cardiomegaly or pleural effusion. Electronically Signed: Paula Mccartney MD at 20:01 EST , Service support ,
[2017-06-16] MEDS: HYDROmorphone 1 MG/ML Syringe 0.5 MG IV ×2 (20:04→22:28)
[2017-06-16 20:16] VITALS: BP 118/67; PULSE 90; RESP 18; O2SAT 98
[2017-06-16 22:31] VITALS: BP 121/59; PULSE 77; RESP 18; O2SAT 99
[2017-06-16 23:27] VITALS: BP 121/57; PULSE 77; RESP 18; O2SAT 99
[2017-06-17 00:28] VITALS: BP 121/57; PULSE 77; RESP 18; O2SAT 98
[2017-06-17 14:11] LABS: Pathologist Review Reviewed
== END 2017-06-17 00:29 | disposition home or self-care (01) ==
PROVIDERS: Emergency Provider Emergency Medicine; Family Provider Internal Medicine; PCP Internal Medicine
DX: M79.89 Other specified soft tissue disorders (principal); M79.604 Pain in right leg; M62.838 Other muscle spasm; I48.92 Unspecified atrial flutter; R06.02 Shortness of breath; R51 Headache; Z79.01 Long term (current) use of anticoagulants; Z79.84 Long term (current) use of oral hypoglycemic drugs; Z79.899 Other long term (current) drug therapy
CPT/HCPCS: 71046; 73560; 80048; 83880; 84484; 85025; 85610; 93005; 93971; 96374; 96375; 96376; 99284; A4216; J1940

== ENCOUNTER → 2017-07-01 09:11 | Outpatient (CLI) | payer MEDICARE, MEDICAID, SELFPAY ==
--- NOTE | 2017-07-01 09:14 | MRI_ITS ---
STUDY: MRI RIGHT KNEE REASON FOR EXAM: Right knee pain, instability, swelling, twisting injury. TECHNIQUE: Standardized fat and water weighted pulse sequences were obtained in all 3 orthogonal planes. COMPARISON: Radiographs 06/16/2017. FINDINGS: There is a radial tear of the posterior horn of the medial meniscus (T2 coronal image 15; proton density sagittal images 29-32). There is peripheral subluxation of the medial meniscus. Normal hyaline cartilage of the medial femorotibial compartment. There is subchondral bone edema of the medial femoral condyle and tibial plateau (T2 coronal images 15-23), a stress phenomenon. Normal medial collateral ligamentous complex (MCL). Normal distal semimembranosus, gracilis and semitendinosus tendons. Normal lateral meniscus. Normal hyaline cartilage of the lateral femorotibial compartment. Normal lateral femoral condyle and tibial plateau. Normal proximal tibiofibular articulation. Normal lateral collateral (fibular) ligament. Normal popliteus tendon. Normal biceps femoris tendon. Normal anterior cruciate ligament (ACL). Normal posterior cruciate ligament (PCL). Normal congruent patellofemoral articulation. Normal hyaline cartilage of the patellofemoral compartment. Normal medial and lateral patellar retinaculum. Normal quadriceps tendon. Normal patellar tendon. Normal Hoffa's fat pad. There is a moderate-sized joint effusion. There is a thin medial patellar plica. There is diffuse edema in the subcutis adipose space. The otherwise visualized osseous structures are unremarkable. MRI/Lower Ext Joint Only (Routine) IMPRESSION: Medial meniscal tear. Subchondral bone edema of the medial femoral condyle and medial tibial plateau, a stress phenomenon. Joint effusion. Diffuse edema in the subcutis adipose space. Electronically Signed: Ascencion De MD at 13:36 EDT Tel , Service support ,
== END ==
PROVIDERS: Family Provider Internal Medicine; PCP Internal Medicine; Visit Provider Internal Medicine
DX: M25.561 Pain in right knee (principal)
CPT/HCPCS: 73721

== ENCOUNTER 2017-09-22 12:02 | Inpatient (IN) | payer MEDICARE, MEDICAID, SELFPAY ==
[2017-09-22] VITALS (18 sets, daily range): BP systolic 85–132; BP diastolic 39–96; PULSE 92–150; RESP 14–23; TEMP 36.6–38.1; O2SAT 95–100; BMI 38.5; BMI 38.4; BMI 40.0
--- NOTE | 2017-09-22 12:19 | EKG12_ITS ---
Test Reason : SYNCOPE Blood Pressure : / mmHG Vent. Rate : 096 BPM Atrial Rate : 326 BPM P-R Int : 000 ms QRS Dur : 074 ms QT Int : 338 ms P-R-T Axes : 000 035 090 degrees QTc Int : 427 ms Atrial fibrillation Low voltage QRS (limb leads) Confirmed by CATARINA JACKSON, CHILO ([id number]), digital editor STEPHANY WILLS ([id number]) on 09/24/2017 2:37:58 PM Referred By: MARCELA Confirmed By:CHILO ELMORE MD
--- NOTE | 2017-09-22 12:25 | RAD_ITS ---
STUDY: X-RAY CHEST REASON FOR EXAM: Male, 77 years old. patient has been feeling generally ill for the past 3 weeks. this morning has had multiple falls per the patient, dizziness, states he was +LOC for unknown amount of time, did not hit his head, chest discomfort TECHNIQUE: Single AP portable view of the chest. COMPARISON: None. FINDINGS: The lungs are clear and expanded. There is no demonstrated pleural abnormality. Normal size heart. Normal mediastinum and hany. Normal visualized pulmonary arteries. There is atherosclerotic tortuosity of the aortic arch and descending thoracic aorta. There are diffuse degenerative changes of the visualized thoracic spine. There is degenerative osteoarthritis of the bilateral shoulders. There is no demonstrated abnormality of the visualized soft tissue structures of the upper abdomen. RAD/Chest 1 View (Portable) IMPRESSION: Degenerative changes, as described above. No demonstrated acute cardiopulmonary process. Electronically Signed: Ashley Desai MD at 13:31 EDT Tel , Service support ,
[2017-09-22 12:36] LABS: Bacteria 0 SEEN /hpf (None Seen); Mucous, Urine 0 SEEN /hpf (<or=2+); Red Blood Cells-Urine 0 SEEN /hpf (0-5); White Blood Cells 0 SEEN /hpf (0-5)
[2017-09-22 12:42] LABS: Absolute Neutrophil Count 12.5 X10^3/uL (2.0-7.7); Basophil# 0.03 X10^3/uL; Basophil% 0.2 % (0-1); Hematocrit 29.5 % (40-54); Hemoglobin 9.4 g/dl (13.0-16.5); Lymphocyte % 7.9 % (19-41); Mean Corp Hgb Conc 31.9 g/gl (32-36); Mean Corpuscular Hgb 32.2 pg (27.0-32.0); Mean Platelet Vol. 9.1 fl (6.2-12.0); Monocyte# 0.14 X10^3/uL; Neutrophil # 12.54 X10^3/uL (2.7-7.7); Neutrophil % 89.5 % (47-70); Platelet Count 352 K/mm3 (150-450); RBC Distribution Width CV 15.8 % (11.6-14.6); RBC Distribution Width SD 57.6 fl (35.1-43.9); Red Blood Count 2.92 M/mm3 (4.6-6.2)
[2017-09-22 12:43] LABS: Differential Indicated SCAN CRITERIA MET; POSITIVE COUNT NO; POSITIVE DIFFERENTIAL NO; POSITIVE MORPHOLOGY YES
[2017-09-22] MEDS: Acetaminophen 500 MG Tablet 1000 MG PO (12:45)
[2017-09-22 12:48] LABS: Color, Urine Yellow (Yellow); Glucose, Dipstick Normal (Normal); Ketone-Dipstick Negative (Negative); Leukocyte Esterase-Dipstick Negative /ul (Negative); Nitrite-Dipstick Negative (Negative); Occult Blood-Urine Negative /ul (Negative); Protein-Dipstick Negative (Negative); Specific Gravity, Urine 1.015 (1.002-1.030); Urine Bilirubin Dipstick Negative (Negative); Urine Clarity Clear (Clear); Urine Urobilinogen Normal (Normal)
[2017-09-22] MEDS: 0.9% Normal Saline 1,000 ML 999 ML IV ×2 (12:49→22:54)
[2017-09-22 12:51] LABS: AST(SGOT) 15 U/L (15-37); Alanine Aminotransfer ALT/SGPT 29 U/L (16-61); Albumin, Serum 3.2 g/dL (3.2-5.0); Alkaline Phosphatase 93 U/L (45-117); Anion Gap 17 (5-15); BUN 51 mg/dL (7-18); BUN/Creat Ratio 29.5 RATIO (10-20); Calcium,Total 8.2 mg/dL (8.5-10.1); Chloride 105 mmol/L (98-107); Creatinine, Serum 1.73 mg/dL (0.70-1.30); EST Glomerular Filtration Rate 41 mL/min (>60); Est Glom Filt Rate - Afr Amer 50 mL/min (>60); Globulin 3.2 g/dL (2.2-4.2); Glucose 114 mg/dL (74-106); Potassium 4.7 mmol/L (3.5-5.1); Protein, Total 6.4 g/dL (6.4-8.2); Sodium Level 141 mmol/L (136-145)
[2017-09-22 13:03] LABS: Squamous Epithelial Cells - UA 0-5 SEEN /hpf (0-5)
--- NOTE | 2017-09-22 13:21 | NURSING ---
NO LW OR POA
--- NOTE | 2017-09-22 13:30 | CM.ED ---
CM INITIAL ASSESSMENT: Patient assessed in the ED with family at bedside. Home: Patient lives at [facility]. He lives with his spouse. There are no steps into the home. HHS/Aides: Denies. DME: Patient uses a walker and grab bars. Patient denies further DME needs at this time. Home Oxygen: BiPAP at night. No home oxygen. Pharmacy: [facility] Advance Directives: Yes. Patient's daughter, Keisha Roman, is medical POA. These documents are verified on echsarah. PCP: Mary Lou Flores Specialists: Dr. Adame (cardiology - [place]) and Dr. Harry (pain management). Patient states he is scheduled to have injections on his spine on 10/06/17. DC Plan: Home. Additional needs TBD. CM will continue to follow for safe and effective discharge planning.
[2017-09-22 13:32] LABS: International Normalized Ratio 1.5; Prothrombin Time (Protime)PT. 18.4 SECONDS (11.7-14.9)
[2017-09-22 13:33] LABS: Partial Thromboplast Time 25.5 Seconds (24.1-36.2)
--- NOTE | 2017-09-22 13:46 | NURSING ---
DR SWAN FOR DR MEDRANO
[2017-09-22 13:51] LABS: Lactic Acid 6.2 mmol/L (0.4-2.0)
--- NOTE | 2017-09-22 13:52 | ED.RN ---
DR MEDRANO NOTIFIED OF LACTIC ACID RESULTS
--- NOTE | 2017-09-22 13:54 | ED.VISSUMM ---
- ER Visit Summary Date of Service: 09/22/17 Chief Complaint: Passed out several times a day and feels lightheaded History of Present Illness: The patient is a 77 M history of prior UTI sepsis. History of prior TIA, ebj-[id number]-[id number] diabetes, A. fib and known renal insufficiency. Patient was admitted in March 2017 secondary to UTI sepsis. He believes he is septic again. States today he has had fever and chills. [place] lightheaded with low blood pressure. And then he is passed out several times. Denies any headache. Denies any chest pain. He denies any head trauma. He is on Eliquis. He denies any cough, nausea, vomiting, diarrhea, melena, chest pain or abdominal pain. Physical Examination: Older male initial blood pressure 91/39. Temperature 100. Pulse ox 90% on room air no signs of hypoxia. H EENT exam dry mixed membranes. Otherwise unremarkable. Neck nontender no lymphadenopathy. Lungs clear to auscultation bilaterally. Heart irregularly irregular rate about 102 consistent with A. fib. Abdomen is soft and nontender. Normal bowel sounds no peritoneal signs. No pulsatile mass. He is moving all 4 extremities. Neurovascular intact. He has 2+ pitting edema both lower extremities. Neurologically he is awake and alert without focal motor deficits. Skin no rashes. No petechiae or purpura. Back exam nontender. Neurologically he is awake and alert with no focal motor deficits. Test Results: Chest x-ray shows no acute abnormality read by myself. EKG is A. fib rate 96. No signs of ischemia. White count is 14. H&H 9.4 and 29 which is worse than his baseline anemia with hemoglobin of around 11. No bands. His electrolytes show a CO2 of 19. An elevated anion gap of 17. A BUN of 51 and creatinine 1.73. Liver enzymes are normal. INR is normal. UA is normal. Urine and blood cultures have been sent. His lactic acid is elevated 6.2. Emergency Department Course and Treatment: Patient treated with a liter of normal saline. Currently his blood pressure has responded and his blood pressure the last I saw was 105/60. He was given Tylenol for his fever. He will be started on empiric antibiotics Zosyn IV and vancomycin IV for sepsis of uncertain etiology. I very spoken to the hospitalist Dr. Babin will be down evaluate the patient for admission to the ICU. Treatment Plan: IV antibiotics, IV fluids and ICU admission. Disposition: Admission Impression: Acute severe sepsis of uncertain etiology Hypotension. Chronic A. fib Chronic renal insufficiency Lactic acidosis with elevated anion gap Critical care time 35 minutes This note was generated with [employer] dictation software. It may contain incorrect words, spelling, and punctuation that were not noted in review of the chart prior to signing ED Disposition - Plan for ED Patient: Chief Complaint: General Illness Referrals: Mary Lou Flores DO [Primary Care Provider] -
--- NOTE | 2017-09-22 14:00 | NURSING ---
ICU SEVERE SEPSIS OF UNCERTAIN SOURCE, HYPOTENSION ASHELFAH
--- NOTE | 2017-09-22 14:21 | NURSING ---
ICU 6, ROOM DIRTY
--- NOTE | 2017-09-22 14:26 | HP.PCM_ITS ---
Problem List (1) Dementia Status: Chronic (2) Hypertension Status: Chronic (3) Gastroesophageal reflux disease Status: Chronic (4) Depression Status: Chronic (5) Chronic atrial fibrillation Status: Chronic (6) Anxiety disorder Status: Chronic (7) Dyslipidemia Status: Chronic (8) Chronic back pain Status: Chronic Comment: On multiple pain medications (9) DM type 2 (diabetes mellitus, type 2) Status: Chronic (10) Chronic headache Status: Chronic (11) Restless leg Status: Chronic History of Present Illness Date of Admission: 09/22/17 Chief Complaint: Syncope. The patient is a 77 year old M with multiple medical comorbidities comorbidities as mentioned above presented to the emergency room from assisted living because of multiple syncopal events. The patient mentioned that only what he can remember is that he passed out 4 times this morning when he was at the bathroom. He tried to stood up, felt dizzy and he passed out. He had another episode of syncope when he tried to walk out of the bathroom and also he has 2 more episodes of syncope thereafter. He denied any prodromal symptoms except mild dizziness. He denied chest pain, shortness of breath, palpitation. He did mention that he felt nauseous after he passed out. He had a history of chronic atrial fibrillation and he has been on amiodarone and Cardizem for rate control as well as Eliquis for anti-coagulation. He has a history of type 2 diabetes mellitus and he has been on metformin and his blood sugar seemed to be under control, most recent hemoglobin A1c was in March, and it was 6.1. 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 According to the patient, his back pain is not controlled all the time and he has been suffering with frequent changes to his pain medications. In the emergency department, patient had low- grade fever, initial blood pressure was in the 90s systolic, improved with IV fluids. Heart rate has been in the 90s and he maintained pulse ox on room air. His routine blood work was remarkable for leukocytosis, hemoglobin of 9.4 g/dL , BUN of 51 and creatinine 4.73. His lactic acid was 6.2. LFT was normal. His EKG revealed atrial fibrillation, no acute ischemic changes. Chest x-ray showed no acute infiltrate, consolidation or effusion. Urine analysis showed no evidence of UTI or acute cystitis. He is being admitted for septic shock by criteria without obvious source of infection. Past Medical History Past Medical History (Chronic Problems): Chronic Problems Dementia (Chronic) Macrocytic anemia (Chronic) Hypertension (Chronic) Gastroesophageal reflux disease (Chronic) Depression (Chronic) Chronic atrial fibrillation (Chronic) Anxiety disorder (Chronic) Dyslipidemia (Chronic) Chronic back pain (Chronic) On multiple pain medications DM type 2 (diabetes mellitus, type 2) (Chronic) MERLENE (obstructive sleep apnea) (Chronic) Chronic headache (Chronic) Restless leg (Chronic) Morbid obesity (Chronic) Allergies dipyridamole [From Persantine] Allergy (Verified 06/16/17 16:30) Other morphine Allergy (Verified 06/16/17 16:30) Anaphylaxis phentolamine Allergy (Verified 09/22/17 14:15) heart problems HEART PROBLEMS Home Medications: Ambulatory Orders Medication Instructions Recorded Ergocalciferol [Vitamin D] 50,000 unit PO MO 09/04/15 Multivitamins,Therapeutic 1 tablet PO DAILY 09/04/15 [Multivitamin] Nitroglycerin [Nitrostat] 0.4 mg SUBLINGUAL Q5M PRN 09/04/15 Tamsulosin HCl [Flomax] 0.4 mg PO DAILY 09/04/15 Diazepam [Valium] 5 mg PO Q24H PRN 03/23/17 Donepezil HCl [Aricept] 10 mg PO DAILY 03/23/17 Fluticasone Propionate [Flonase 1 spray NS DAILY PRN PRN 03/23/17 Allergy Relief] Magnesium Oxide [Mag-Ox 400] 400 mg PO DAILY 03/23/17 Meclizine HCl [Antivert] 25 mg PO 4X/DAY PRN PRN 03/23/17 Meloxicam [Mobic] 7.5 mg PO DAILY 03/23/17 Metformin HCl [Glucophage] 1,000 mg PO BIDCM 03/23/17 Ropinirole HCl [Requip] 1 mg PO BID 03/23/17 Topiramate [Topamax] 100 mg PO BID 03/23/17 Vitamin B Complex 1 each PO DAILY 03/23/17 Zolpidem Tartrate [Ambien] 5 mg PO QHS 03/23/17 fentaNYL patch [Duragesic patch] 25 mcg TRANSDERM. Q48H 03/23/17 Docusate Sodium [Colace] 100 mg PO QHS 03/25/17 Mag Hydrox/Al Hydrox/Simeth 30 ml PO Q4H PRN PRN 03/25/17 [Mylanta II] Oxymetazoline HCl [Nasal 2 spray NS DAILY 03/25/17 Decongestant] Polyethylene Glycol 3350 [Miralax] 17 gm PO DAILY PRN PRN 03/25/17 Sodium Chloride [Saline Mist] 1 spray NS Q12H PRN PRN 03/25/17 Diltiazem CD [Cardizem CD] 120 mg PO Q12 #60 cap 03/30/17 Acetaminophen [Extra Strength 1,000 mg PO 4X/DAY 06/06/17 Non-Aspirin] Amiodarone HCl 200 mg PO DAILY 06/06/17 Amitriptyline HCl [Elavil] 25 mg PO QHS 06/06/17 Atorvastatin Calcium [Lipitor] 10 mg PO QHS 06/06/17 Carbamazepine [Tegretol] 200 mg PO DAILY 06/06/17 Citalopram [Celexa] 10 mg PO DAILY 06/06/17 Cyclobenzaprine HCl 10 mg PO TID PRN 06/06/17 Metoprolol Succinate 12.5 mg PO DAILY 06/06/17 busPIRone [Buspar] 15 mg PO TID 06/06/17 Apixaban [Eliquis] 5 mg PO BID #60 tab 06/09/17 Furosemide [Lasix] 80 mg PO BID@1000,1800 #60 tab 06/09/17 Potassium Chloride [K-Dur] 20 meq PO BIDCM #60 tab 06/09/17 Diazepam [Valium] 5 mg PO Q8 PRN 5 Days #15 tab 06/17/17 Oxycodone HCl/Acetaminophen 1 tab PO Q6H PRN PRN 5 Days #20 tab 06/17/17 [Percocet 5/325] Surgical History: tonsillectomy, - - Multiple back surgeries, Shakeel fundoplication, Appendectomy, Umbilical and Inguinal hernia repairs. Psychiatric History: Anxiety, Depression, - - Dementia Lives: - - Assisted-living. Smoking Status: Former smoker Alcohol: None Drugs: None - *Family History Paternal History Items: No pertinent history - age 92 Maternal History Items: Cancer - age 53, lung cancer Review of Systems Constitutional: Reports: Anorexia, Fever, Weakness, Fatigue. Denies: Chills Eyes: Denies: Blurred vision, Double vision, Drainage, Redness HEENT: Denies: Difficulty Hearing, Ear Pain, Eye Pain, Nasal Congestion, Sore Throat Cardiovascular: Reports: Edema, Syncope. Denies: Chest Pain, Chest Pressure, Heaviness, Light Headedness, Palpitations Respiratory: Denies: Cough, Pleuritic Pain, Shortness of Breath, Sputum production, Wheezing Gastrointestinal: Reports: Nausea. Denies: Abdominal Pain, Constipation, Diarrhea, Vomiting Genitourinary: Denies: Dysuria, Frequency, Hematuria Musculoskeletal: Reports: Back Pain. Denies: Arm Pain, Foot Pain Skin: Denies: Dryness, Rash Neurological: Denies: Balance problems, Double vision, Slurred speech, Confusion , Incoordination, Numbness Psychiatric: Reports: Anxiety, Depression Endocrine: Denies: Change in Body Habitus, Polydipsia VTE Information - Inpt Only VTE Present on Admission: No VTE Mechan Device Prophylaxis: None VTE Pharm Prophylaxis ordered?: No - Physical Exam General: Alert, Oriented x3, Cooperative, - - He is in moderate pain. HEENT: Atraumatic, PERRLA, EOMI, Normocephalic Oral: Moist Mucosa, No Gingival or Mucosal Lesions/ Ulcerations Neck: Supple, No JVD, Negative Carotid Bruits, Trachea Midline, Thyroid Normal Size and Texture Lungs: Clear to auscultation, No rhonchi, No wheeze, No rales, Diminished Cardiovascular: Normal S1, Normal S2, No murmurs, PMI Normal, Irregular Rate, Tachycardic Abdomen: Bowel Sounds Present, Soft, Non Tender, Non-Distended, No Hepato- splenomegaly, Obese Extremities: No clubbing, No cyanosis, Edema - ++ Edema. Skin: No rashes, No breakdown Lymphatic: No Cervical, Supraclavicular, or Inguinal Adenopathy Neurological: Cranial nerves II-XII grossly intact, Motor Exam 5/5 strength throughout Psych/Mental Status: Normal Affect, Appropriate, Alert and oriented to time, place, person, mood and affect Vital Signs Temp Pulse Resp BP Pulse Ox 99 F 98 14 128/78 H 96 09/22/17 14:00 09/22/17 14:00 09/22/17 14:00 09/22/17 14:00 09/22/17 14:00 Oxygen Delivery Method Room Air Weight: 253 lb 8.505 oz Body Mass Index (BMI) 38.5 Laboratory Tests Past 24 Hrs 09/22/17 09/22/17 09/22/17 12:20 12:25 12:25 WBC 14.0 H RBC 2.92 L Hgb 9.4 L Hct 29.5 L MCV 101.0 H MCH 32.2 H MCHC 31.9 L RDW 15.8 H RDW Differential 57.6 H Plt Count 352 MPV 9.1 Immature Gran % (Auto) 1.400 H Neut % (Auto) 89.5 H Lymph % (Auto) 7.9 L [place] % (Auto) 1.0 Eos % (Auto) 0.0 Baso % (Auto) 0.2 Absolute Neuts (auto) 12.5 H Absolute Lymphs (auto) 1.10 Total Counted Not Reportable PT INR APTT Sodium 141 Potassium 4.7 Chloride 105 Carbon Dioxide 19.0 L Anion Gap 17 H BUN 51 H Creatinine 1.73 H Estim Creat Clear Calc 34.60 Est GFR (MDRD) Af Amer 50 L Est GFR (MDRD) Non-Af 41 L BUN/Creatinine Ratio 29.5 H Glucose 114 H Lactic Acid Calcium 8.2 L Total Bilirubin 0.30 AST 15 ALT 29 Alkaline Phosphatase 93 Total Protein 6.4 Albumin 3.2 Globulin 3.2 Albumin/Globulin Ratio 1.0 Urine Color Yellow Urine Clarity Clear Urine pH 5.0 Ur Specific [place] 1.015 Urine Protein Negative Urine Glucose (UA) Normal Urine Ketones Negative Urine Occult Blood Negative Urine Nitrite Negative Urine Bilirubin Negative Urine Urobilinogen Normal Ur Leukocyte Esterase Negative Urine RBC 0 SEEN Urine WBC 0 SEEN Ur Squamous Epith Cells 0-5 SEEN Urine Bacteria 0 SEEN Urine Mucus 0 SEEN 09/22/17 09/22/17 13:11 13:11 WBC RBC Hgb Hct MCV MCH MCHC RDW RDW Differential Plt Count MPV Immature Gran % (Auto) Neut % (Auto) Lymph % (Auto) [place] % (Auto) Eos % (Auto) Baso % (Auto) Absolute Neuts (auto) Absolute Lymphs (auto) Total Counted PT 18.4 H INR 1.5 APTT 25.5 Sodium Potassium Chloride Carbon Dioxide Anion Gap BUN Creatinine Estim Creat Clear Calc Est GFR (MDRD) Af Amer Est GFR (MDRD) Non-Af BUN/Creatinine Ratio Glucose Lactic Acid 6.2 H* Calcium Total Bilirubin AST ALT Alkaline Phosphatase Total Protein Albumin Globulin Albumin/Globulin Ratio Urine Color Urine Clarity Urine pH Ur Specific [place] Urine Protein Urine Glucose (UA) Urine Ketones Urine Occult Blood Urine Nitrite Urine Bilirubin Urine Urobilinogen Ur Leukocyte Esterase Urine RBC Urine WBC Ur Squamous Epith Cells Urine Bacteria Urine Mucus Clinical Impression(s) from Imaging Studies Chest X-Ray 09/22/17 12:25 IMPRESSION: Degenerative changes, as described above. No demonstrated acute cardiopulmonary process. Electronically Signed: Ashley Desai MD at 13:31 EDT Tel , Service support , Assessment/Plan All Active Problems C. difficile colitis (Resolved) This is a 77 years old male patient presented to the emergency room because of multiple syncopal episodes, found to have septic shock by criteria without obvious source of infection. #1 septic shock: Based on low-grade fever, leukocytosis and elevated lactic acid as well as borderline hypotension. There is no obvious source of infection. Chest x-ray showed no acute infiltrate. Urinalysis reviewed, without evidence of acute UTI. He has no skin rash, no erythema. He does have chronic bilateral leg edema. 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 After IV fluids, blood pressure improved. Urine and blood culture sent. Plan: Admit to PCU, critical care monitoring, complete bedrest, IV fluids per Protocol 35 cc/kg, maintenance IV fluids, start IV Zosyn and vancomycin empirically, maintenance IV fluids, repeat CBC and BMP tomorrow morning, critical care consult, infectious disease consult, PT OT evaluation and treatment. #2 multiple syncopal episodes: Likely due to vasovagal syncope syncope due to hypotension. EKG revealed A. fib, rate controlled, no acute changes. Plan as above, IV fluids, close monitoring of blood pressure. #3 renal insufficiency: This is fairly acute. It started on May,, before that, his kidney function has been normal. Since May,, his creatinine has been around 1.4-1.8 mg/dL. Admission creatinine is 1.73 mg/dL. Plan: IV fluids, input output chart, repeat BMP tomorrow morning, hold for toxic drugs. #4 chronic atrial fibrillation: Rate has been around 90s, blood pressure improved. Plan to continue amiodarone, Cardizem and metoprolol for rate control , continue Eliquis for anticoagulation. #5 type 2 diabetes mellitus: ADA diet, Accu-Cheks q. before meals at bedtime, and sliding scale, hold metformin. #6 hypertension: Initially, blood pressure was borderline low, systolic was around 90, improved with IV fluids. Plan to continue IV fluids, continue metoprolol. #7 chronic back pain: Continue fentanyl patch, oxycodone, baclofen. #8 chronic anemia: Baseline angle has been around 11-12 g/dL. Admission hemoglobin is 9.4 g/dL. At this time, no evidence of active bleeding. No indication for transfusion. Plan to repeat CBC tomorrow morning. #9 CODE STATUS: DNR CCA, discussed and confirmed with the patient's daughter #10 DVT prophylaxis: Continue Eliquis. Other chronic medical problems: #1 dementia. #2 hyperlipidemia. #3 chronic headache. #4 obstructive sleep apnea. #5 anxiety/depression. #6 GERD. This note was generated with [employer] dictation software. It may contain incorrect words, spelling, and punctuation that were not noted in checking the note before signing. Code Visit Inpatient E&M: 01979 Init Hosp L3
[2017-09-22 17:00] LABS: Bedside Glucose 103 mg/dL (70-110)
[2017-09-22] MEDS: 0.9% Normal Saline 1,000 ML 150 ML IV (17:07)
[2017-09-22 17:18] LABS: Reflex Lactate? Y
--- NOTE | 2017-09-22 18:47 | PCM.RX.CS ---
Consult Pharmacy has been consulted to manage selected antiobiotic: Vancomycin Type of Consult: New start Suspected Infection: Sepsis Prior Doses of Antibiotics Received/Current Regimen: 2000MG IV X1 IN ED 09/22/17 @1425 Labs: Sodium 141 mmol/L (136-145) 09/22/17 12:25 Potassium 4.7 mmol/L (3.5-5.1) 09/22/17 12:25 Chloride 105 mmol/L (98-107) 09/22/17 12:25 Carbon Dioxide 19.0 mmol/L (21.0-32.0) L 09/22/17 12:25 Anion Gap 17 (5-15) H 09/22/17 12:25 BUN 51 mg/dL (7-18) H 09/22/17 12:25 Creatinine 1.73 mg/dL (0.70-1.30) H 09/22/17 12:25 Est GFR (MDRD) Af Amer 50 mL/min (>60) L 09/22/17 12:25 Est GFR (MDRD) Non-Af 41 mL/min (>60) L 09/22/17 12:25 BUN/Creatinine Ratio 29.5 RATIO (10-20) H 09/22/17 12:25 Glucose 114 mg/dL (74-106) H 09/22/17 12:25 Weight used for dosin.5 kg Estimated Creatinine Clearance: 35 ML/MIN Goal Trough: 15-20 mcg/mL Pharmacy Plan for Drug Dosing: Pharmacy to manage vancomycin for the treatment of sepsis per H/P. Patient got 1x dose of vancomycin in the ED. Given diagnosis per H/P, will target a trough of 15-20 PLAN/RECOMMENDATIONS 1. Vancomycin 1750mg IV Q24hrs (start 09/23/17 @1400) 2. Trough scheduled 09/24/17 @1330 prior to 3rd total dose of vancomycin 3. Pharmacy will continue to monitor daily and make changes as appropriate.
[2017-09-22 19:35] LABS: Lactic Acid 2.7 mmol/L (0.4-2.0)
[2017-09-22 19:44] LABS: M R Staph aureus DNA By PCR Negative (Negative); Probe Check PASS; Specimen Processing Control PASS
[2017-09-22] MEDS: Ondansetron 4 MG/2 ML Vial IV (19:51)
[2017-09-22] MEDS: 0.9% NaCl Peripheral Flush Adult/Peds IV (19:51)
--- NOTE | 2017-09-22 21:48 | NURSING ---
assuming care of the patient at this time.
--- NOTE | 2017-09-22 22:30 | RAD_ITS ---
STUDY: X-RAY CHEST REASON FOR EXAM: Male, 77 years old. Central line placement central line placement TECHNIQUE: AP portable COMPARISON: September 22, 2017 12:36 PM FINDINGS: Lungs are mildly hyperinflated but clear.. Tiny calcified granuloma in left upper lobe. There is no demonstrated pleural abnormality. Normal size heart. Normal mediastinum and hany. Normal visualized pulmonary arteries. Normal visualized aortic arch and descending thoracic aorta. Central line is in place on the right with tip in distal superior vena cava. Normal visualized thoracic spine. Normal visualized ribs, clavicles, and shoulders. Postsurgical changes in left upper quadrant.. RAD/CXR for Line Placement IMPRESSION: Mild hyperinflation. Central line placement in distal superior vena cava without evidence for pneumothorax Electronically Signed: Claudio Cohn MD at 23:02 EDT , Service support ,
--- NOTE | 2017-09-22 22:37 | PCM.OP.BLANK ---
Problem List (1) Septic shock Status: Acute Operative Report Date of Procedure: 09/22/17 Procedure: Right IJ triple-lumen catheter Reason: Is for IV access as patient lost IV access as well as septic shock and administration of IV fluids and antibiotics Risks and benefits were discussed with the patient. Risks including bleeding and pneumothorax were discussed with the patient and and patient agreed to proceed with a right IJ triple-lumen catheter. Description: Area was prepped and draped in a sterile fashion. Using ultrasound guidance the right internal jugular was identified. The area was anesthetized with local lidocaine. Area was cannulated to be a needle with dark red blood. Guidewire was advanced. Area dilated did require 2 attempts to dilate and then triple-lumen catheter was advanced and sutured in place. Patient tolerated the procedure well. All ports monserrat and flushed easily. Follow-up x-ray showed no pneumothorax. Discussed with nursing and okay to proceed with the IV use. Code Visit Procedures: 38838 Insert Non-tunnel CV Cath
[2017-09-22 22:45] LABS: Reflex Lactate? Y
[2017-09-22] MEDS: Zolpidem Tartrate 5 MG Tablet PO (23:03)
[2017-09-22] MEDS: dilTIAZem CD 120 MG Capsule PO (23:04)
[2017-09-22] MEDS: Topiramate 100 MG Tablet PO (23:04)
[2017-09-22] MEDS: Pramipexole Di-HCl 0.5 MG Tablet PO (23:04)
[2017-09-22] MEDS: Piperacil/Tazobactam 3.375 GM/50 ML ML IV (23:04)
[2017-09-22] MEDS: Insulin Lispro 100 UNIT/ML INSULN.PEN SC (23:09)
[2017-09-22] MEDS: Amitriptyline 25 MG Tablet PO (23:10)
[2017-09-22] MEDS: Atorvastatin Calcium 10 MG Tablet PO (23:11)
[2017-09-22] MEDS: busPIRone 15 MG TABLET PO (23:11)
[2017-09-22] MEDS: Docusate Sodium 100 MG Capsule PO (23:12)
[2017-09-22] MEDS: APIXABAN 5 MG TABLET PO (23:12)
[2017-09-22 23:30] LABS: Bedside Glucose 180 mg/dL (70-110)
[2017-09-22 23:38] LABS: Lactic Acid 8.1 mmol/L (0.4-2.0)
[2017-09-23] VITALS (12 sets, daily range): BP systolic 59–105; BP diastolic 38–57; PULSE 94–133; RESP 17–26; TEMP 37–37.7; O2SAT 78–100
[2017-09-23] MEDS: dilTIAZem 25 MG/5 ML Vial 5 MG IV BOLUS (01:56)
--- NOTE | 2017-09-23 02:08 | NURSING ---
rapid response called due to patient not responding to staff
--- NOTE | 2017-09-23 02:10 | NURSING ---
fentanyl patch removed per Dr Judd, flushed down hopper and wasted with Lili Perkins RN
[2017-09-23] MEDS: 0.9% Normal Saline 1,000 ML 999 ML IV (02:15)
[2017-09-23 02:40] LABS: Absolute Lymphocyte Count 1.71 X10^3/ul (0.83-4.51); Absolute Neutrophil Count 19.5 X10^3/uL (2.0-7.7); Basophil# 0.04 X10^3/uL; Basophil% 0.2 % (0-1); Eosinophil# 0.01 X10^3/uL; Hematocrit 18.5 % (40-54); International Normalized Ratio 2.1; Lymphocyte # 1.71 X10^3/ul (4.0); Lymphocyte % 7.7 % (19-41); Mean Corp Hgb Conc 31.4 g/gl (32-36); Mean Corpuscular Hgb 32.6 pg (27.0-32.0); Mean Corpuscular Volume 103.9 fL (80-94); Mean Platelet Vol. 8.9 fl (6.2-12.0); Monocyte# 0.69 X10^3/uL; Monocyte% 3.1 % (0-10); Neutrophil # 19.47 X10^3/uL (2.7-7.7); Neutrophil % 87.1 % (47-70); Platelet Count 407 K/mm3 (150-450); Prothrombin Time (Protime)PT. 23.4 SECONDS (11.7-14.9); RBC Distribution Width CV 16.4 % (11.6-14.6); Red Blood Count 1.78 M/mm3 (4.6-6.2); White Blood Count 22.4 K/mm3 (4.4-11.0)
[2017-09-23 02:41] LABS: Differential Indicated SCAN CRITERIA MET; POSITIVE COUNT YES; POSITIVE DIFFERENTIAL NO; POSITIVE MORPHOLOGY YES
[2017-09-23 02:42] LABS: Absolute Nucleated RBC Count 0.27 10^3/uL (0-5); NRBC Flagged by Analyzer 1.2 % (0-5)
[2017-09-23 02:47] LABS: Anion Gap 22 (5-15); BUN 64 mg/dL (7-18); BUN/Creat Ratio 30.9 RATIO (10-20); Calcium,Total 7.1 mg/dL (8.5-10.1); Chloride 108 mmol/L (98-107); Creatinine, Serum 2.07 mg/dL (0.70-1.30); EST Glomerular Filtration Rate 33 mL/min (>60); Est Glom Filt Rate - Afr Amer 40 mL/min (>60); Estimated Creatinine Clearance 28.91 ml/min; Glucose 276 mg/dL (74-106); Potassium 4.9 mmol/L (3.5-5.1); Sodium Level 139 mmol/L (136-145)
--- NOTE | 2017-09-23 03:30 | PCM.DC.SUM ---
Discharge Date and Diagnosis - Problem List Patient Problems: Active and Suspected Problems Septic shock (Acute) GI bleed (Acute) Acute blood loss anemia (Acute) Atrial fibrillation with RVR (Acute) Date of Admission: 09/22/17 Date of Discharge: 09/23/17 - Primary Discharge Diagnosis Active and Suspected Problems Septic shock (Acute) - Secondary Discharge Diagnosis Chronic Problems Dementia (Chronic) Macrocytic anemia (Chronic) Hypertension (Chronic) Gastroesophageal reflux disease (Chronic) Depression (Chronic) Chronic atrial fibrillation (Chronic) Anxiety disorder (Chronic) Dyslipidemia (Chronic) Chronic back pain (Chronic) On multiple pain medications DM type 2 (diabetes mellitus, type 2) (Chronic) MERLENE (obstructive sleep apnea) (Chronic) Chronic headache (Chronic) Restless leg (Chronic) Morbid obesity (Chronic) Hospital Course and Treatment Imaging Results: 09/22/17 22:30 CXR for Line Placement [RAD] Urgent Clinical Impression(s) from Imaging Studies Chest X-Ray 09/22/17 12:25 IMPRESSION: Degenerative changes, as described above. No demonstrated acute cardiopulmonary process. Electronically Signed: Ashley Desai MD at 13:31 EDT Tel , Service support , Chest X-Ray 09/22/17 22:30 IMPRESSION: Mild hyperinflation. Central line placement in distal superior vena cava without evidence for pneumothorax Electronically Signed: Claudio Cohn MD at 23:02 EDT , Service support , Operations: None Procedures: Central line placement Summary of Care Provided: The patient is a 77 year old M presents with syncope at his assisted living. Patient did stood up felt dizzy and then passed out on several occasions. Patient presented to the emergency room and was found to have a lactic acid of 6.1. The concern with his issues was for septic shock. Patient was admitted to the IV ICU and started on broad-spectrum antibiotics. While in the ICU, patient had melena in appearance but also smell. Medical came back as negative. However, the patient's hemoglobin dropped from 9.46. I spoke with Dr. Goff of general surgery and discussed the case with her in regards to the GI bleed. She felt that due to the patient's medical complexity that he would be best suited at a tertiary facility. I spoke with the patient's daughter who requested [facility] and [facility]. I called both those facilities and they had no available ICU beds anytime soon. Notified her again and she then requested [facility]. I spoke with Dr. Ramachandran at [facility] and he accepted the patient. I did convert the patient's daughter earlier that his CODE STATUS is DNR Comfort Care arrest. I am unclear as to the source of the patient's bleeding but with a lactic acidosis with there are some ischemic colitis or mesenteric ischemia. Patient is not having any abdominal pain at this time and his abdomen is nondistended nor tender. No other source of bleeding is been identified. Patient did have hypertension and did receive several rounds of IV fluids. Patient did have some atrial fibrillation with RVR with heart rate in the 150s at one point. Patient was temporally started on Cardizem drip and his pressure drops. Cardizem drip was subsequently stopped and patient's heart rate is a range in the 120s. Patient's prognosis is guarded at this time. Patient had lost peripheral access and they were not able to get additional peripheral access. And right IJ triple-lumen catheter was placed by me. [] Discharge Diet: - - NPO Home Medications: Medications to take at Discharge Ergocalciferol [Vitamin D] 50,000 unit PO MO 09/04/15 Multivitamins,Therapeutic [Multivitamin] 1 tablet PO DAILY 09/04/15 Nitroglycerin [Nitrostat] 0.4 mg SUBLINGUAL Q5M PRN 09/04/15 Tamsulosin HCl [Flomax] 0.4 mg PO DAILY 09/04/15 Donepezil HCl [Aricept] 10 mg PO DAILY 03/23/17 Fluticasone Propionate [Flonase Allergy Relief] 1 spray NS DAILY PRN PRN 03/23/17 Magnesium Oxide [Mag-Ox 400] 400 mg PO DAILY 03/23/17 Meclizine HCl [Antivert] 25 mg PO 4X/DAY PRN PRN 03/23/17 Meloxicam [Mobic] 7.5 mg PO DAILY 03/23/17 Metformin HCl [Glucophage] 1,000 mg PO BIDCM 03/23/17 Ropinirole HCl [Requip] 1 mg PO BID 03/23/17 Topiramate [Topamax] 150 mg PO BID 03/23/17 Vitamin B Complex 1 each PO DAILY 03/23/17 fentaNYL patch [Duragesic patch] 25 mcg TRANSDERM. Q48H 03/23/17 Docusate Sodium [Colace] 100 mg PO QHS 03/25/17 Mag Hydrox/Al Hydrox/Simeth [Mylanta II] 30 ml PO Q4H PRN PRN 03/25/17 Oxymetazoline HCl [Nasal Decongestant] 2 spray NS DAILY 03/25/17 Polyethylene Glycol 3350 [Miralax] 17 gm PO DAILY PRN PRN 03/25/17 Sodium Chloride [Saline Mist] 1 spray NS Q12H PRN PRN 03/25/17 Acetaminophen [Extra Strength Non-Aspirin] 1,000 mg PO 4X/DAY 06/06/17 Amiodarone HCl 200 mg PO DAILY 06/06/17 Amitriptyline HCl [Elavil] 25 mg PO QHS 06/06/17 Atorvastatin Calcium [Lipitor] 10 mg PO QHS 06/06/17 Carbamazepine [Tegretol] 200 mg PO DAILY 06/06/17 Citalopram [Celexa] 10 mg PO DAILY 06/06/17 Cyclobenzaprine HCl 10 mg PO Q8H PRN 06/06/17 Metoprolol Succinate 12.5 mg PO DAILY 06/06/17 busPIRone [Buspar] 15 mg PO TID 06/06/17 Apixaban [Eliquis] 5 mg PO BID 09/22/17 Baclofen [Lioresal] 10 mg PO TID PRN PRN 09/22/17 Cyanocobalamin (Vitamin B-12) [B-12] 1,000 mcg PO DAILY 09/22/17 Diclofenac Sodium [Pennsaid] 1 applic TP TID PRN PRN 09/22/17 Diltiazem CD [Cardizem CD] 120 mg PO Q12 09/22/17 Furosemide [Lasix] 40 mg PO 1200 09/22/17 Furosemide [Lasix] 80 mg PO DAILY 09/22/17 Menthol [Biofreeze] 1 applicatio TP Q4H PRN PRN 09/22/17 Potassium Chloride [K-Dur] 20 meq PO BIDCM 09/22/17 Zolpidem Tartrate [Ambien (Generic)] 5 mg PO QHS PRN PRN 09/22/17 Primary Care Physician: Mary Lou Flores DO [Primary Care Provider] - Disposition: Acute care Hospital Minutes spent on discharge:: 60 Patient Condition:: Guarded Medical Necessity - Tobacco Use Smoking Status: Former smoker Meaningful Use Info Meaningful Use Diagnoses (Choose all that apply): None applicable Code Visit Inpatient E&M: 70914 Disch Hosp
--- NOTE | 2017-09-23 03:36 | DS.PCM_ITS ---
Discharge Date and Diagnosis - Problem List Patient Problems: Active and Suspected Problems Septic shock (Acute) GI bleed (Acute) Acute blood loss anemia (Acute) Atrial fibrillation with RVR (Acute) Date of Admission: 09/22/17 Date of Discharge: 09/23/17 - Primary Discharge Diagnosis Active and Suspected Problems Septic shock (Acute) - Secondary Discharge Diagnosis Chronic Problems Dementia (Chronic) Macrocytic anemia (Chronic) Hypertension (Chronic) Gastroesophageal reflux disease (Chronic) Depression (Chronic) Chronic atrial fibrillation (Chronic) Anxiety disorder (Chronic) Dyslipidemia (Chronic) Chronic back pain (Chronic) On multiple pain medications DM type 2 (diabetes mellitus, type 2) (Chronic) MERLENE (obstructive sleep apnea) (Chronic) Chronic headache (Chronic) Restless leg (Chronic) Morbid obesity (Chronic) Hospital Course and Treatment Imaging Results: 09/22/17 22:30 CXR for Line Placement [RAD] Urgent Clinical Impression(s) from Imaging Studies Chest X-Ray 09/22/17 12:25 IMPRESSION: Degenerative changes, as described above. No demonstrated acute cardiopulmonary process. Electronically Signed: Ashley Desai MD at 13:31 EDT Tel , Service support , Chest X-Ray 09/22/17 22:30 IMPRESSION: Mild hyperinflation. Central line placement in distal superior vena cava without evidence for pneumothorax Electronically Signed: Claudio Cohn MD at 23:02 EDT , Service support , Operations: None Procedures: Central line placement Summary of Care Provided: The patient is a 77 year old M presents with syncope at his assisted living. Patient did stood up felt dizzy and then passed out on several occasions. Patient presented to the emergency room and was found to have a lactic acid of 6.1. The concern with his issues was for septic shock. Patient was admitted to the IV ICU and started on broad-spectrum antibiotics. While in the ICU, patient had melena in appearance but also smell. Medical came back as negative. However, the patient's hemoglobin dropped from 9.46. I spoke with Dr. Goff of general surgery and discussed the case with her in regards to the GI bleed. She felt that due to the patient's medical complexity that he would be best suited at a tertiary facility. I spoke with the patient's daughter who requested [facility] and [facility]. I called both those facilities and they had no available ICU beds anytime soon. Notified her again and she then requested [facility]. I spoke with Dr. Ramachandran at [facility] and he accepted the patient. I did convert the patient's daughter earlier that his CODE STATUS is DNR Comfort Care arrest. I am unclear as to the source of the patient's bleeding but with a lactic acidosis with there are some ischemic colitis or mesenteric ischemia. Patient is not having any abdominal pain at this time and his abdomen is nondistended nor tender. No other source of bleeding is been identified. Patient did have hypertension and did receive several rounds of IV fluids. Patient did have some atrial fibrillation with RVR with heart rate in the 150s at one point. Patient was temporally started on Cardizem drip and his pressure drops. Cardizem drip was subsequently stopped and patient's heart rate is a range in the 120s. Patient's prognosis is guarded at this time. Patient had lost peripheral access and they were not able to get additional peripheral access. And right IJ triple-lumen catheter was placed by me. [] Discharge Diet: - - NPO Home Medications: Medications to take at Discharge Ergocalciferol [Vitamin D] 50,000 unit PO MO 09/04/15 Multivitamins,Therapeutic [Multivitamin] 1 tablet PO DAILY 09/04/15 Nitroglycerin [Nitrostat] 0.4 mg SUBLINGUAL Q5M PRN 09/04/15 Tamsulosin HCl [Flomax] 0.4 mg PO DAILY 09/04/15 Donepezil HCl [Aricept] 10 mg PO DAILY 03/23/17 Fluticasone Propionate [Flonase Allergy Relief] 1 spray NS DAILY PRN PRN Magnesium Oxide [Mag-Ox 400] 400 mg PO DAILY 03/23/17 Meclizine HCl [Antivert] 25 mg PO 4X/DAY PRN PRN 03/23/17 Meloxicam [Mobic] 7.5 mg PO DAILY 03/23/17 Metformin HCl [Glucophage] 1,000 mg PO BIDCM 03/23/17 Ropinirole HCl [Requip] 1 mg PO BID 03/23/17 Topiramate [Topamax] 150 mg PO BID 03/23/17 Vitamin B Complex 1 each PO DAILY 03/23/17 fentaNYL patch [Duragesic patch] 25 mcg TRANSDERM. Q48H 03/23/17 Docusate Sodium [Colace] 100 mg PO QHS 03/25/17 Mag Hydrox/Al Hydrox/Simeth [Mylanta II] 30 ml PO Q4H PRN PRN 03/25/17 Oxymetazoline HCl [Nasal Decongestant] 2 spray NS DAILY 03/25/17 Polyethylene Glycol 3350 [Miralax] 17 gm PO DAILY PRN PRN 03/25/17 Sodium Chloride [Saline Mist] 1 spray NS Q12H PRN PRN 03/25/17 Acetaminophen [Extra Strength Non-Aspirin] 1,000 mg PO 4X/DAY 06/06/17 Amiodarone HCl 200 mg PO DAILY 06/06/17 Amitriptyline HCl [Elavil] 25 mg PO QHS 06/06/17 Atorvastatin Calcium [Lipitor] 10 mg PO QHS 06/06/17 Carbamazepine [Tegretol] 200 mg PO DAILY 06/06/17 Citalopram [Celexa] 10 mg PO DAILY 06/06/17 Cyclobenzaprine HCl 10 mg PO Q8H PRN 06/06/17 Metoprolol Succinate 12.5 mg PO DAILY 06/06/17 busPIRone [Buspar] 15 mg PO TID 06/06/17 Apixaban [Eliquis] 5 mg PO BID 09/22/17 Baclofen [Lioresal] 10 mg PO TID PRN PRN 09/22/17 Cyanocobalamin (Vitamin B-12) [B-12] 1,000 mcg PO DAILY 09/22/17 Diclofenac Sodium [Pennsaid] 1 applic TP TID PRN PRN 09/22/17 Diltiazem CD [Cardizem CD] 120 mg PO Q12 09/22/17 Furosemide [Lasix] 40 mg PO 1200 09/22/17 Furosemide [Lasix] 80 mg PO DAILY 09/22/17 Menthol [Biofreeze] 1 applicatio TP Q4H PRN PRN 09/22/17 Potassium Chloride [K-Dur] 20 meq PO BIDCM 09/22/17 Zolpidem Tartrate [Ambien (Generic)] 5 mg PO QHS PRN PRN 09/22/17 Primary Care Physician: Mary Lou Flores DO [Primary Care Provider] - Disposition: Acute care Hospital Minutes spent on discharge:: 60 Patient Condition:: Guarded Medical Necessity - Tobacco Use Smoking Status: Former smoker Meaningful Use Info Meaningful Use Diagnoses (Choose all that apply): None applicable Code Visit Inpatient E&M: 91146 Disch Hosp
[2017-09-23 03:53] LABS: Differential Comment SCANNED; Macrocytosis 2+
--- NOTE | 2017-09-23 03:58 | NURSING ---
Spoke with Keisha, patient's daughter/poa to update her on the patient's transport to [facility]. Aware that ground transport is on their way.
--- NOTE | 2017-09-23 04:07 | NURSING ---
report called to [facility], given to WILLIAM Marrufo
[2017-09-23 04:31] LABS: Bedside Glucose 183 mg/dL (70-110)
--- NOTE | 2017-09-23 05:01 | NURSING ---
patient transported to [facility] at this time.
[2017-09-23 12:19] LABS: Pathologist Review Reviewed
== END 2017-09-23 05:10 | disposition short-term general hospital (02) | DRG 871 ==
LOC: ED 13:03 → ICU 14:28
PROVIDERS: Admitting Provider Hospitalist; Emergency Provider Emergency Medicine; Family Provider Internal Medicine; PCP Internal Medicine; Visit Provider Hospitalist
DX: A41.9 Sepsis, unspecified organism (principal); R65.21 Severe sepsis with septic shock; E87.2 Acidosis; G03.1 Chronic meningitis; K92.1 Melena; D62 Acute posthemorrhagic anemia; E11.9 Type 2 diabetes mellitus without complications; I48.2 Chronic atrial fibrillation; E78.5 Hyperlipidemia, unspecified; F03.90 Unspecified dementia, unspecified severity, without behavioral disturbance, psychotic disturbance, mood disturbance, and anxiety; G89.4 Chronic pain syndrome; G25.81 Restless legs syndrome; K21.9 Gastro-esophageal reflux disease without esophagitis; F32.9 Major depressive disorder, single episode, unspecified; F41.9 Anxiety disorder, unspecified; G47.33 Obstructive sleep apnea (adult) (pediatric); E66.01 Morbid (severe) obesity due to excess calories; Z68.38 Body mass index [BMI] 38.0-38.9, adult; Z79.01 Long term (current) use of anticoagulants; Z79.84 Long term (current) use of oral hypoglycemic drugs; Z79.891 Long term (current) use of opiate analgesic; Z79.899 Other long term (current) drug therapy; Z86.73 Personal history of transient ischemic attack (TIA), and cerebral infarction without residual deficits; Z87.440 Personal history of urinary (tract) infections; Z87.891 Personal history of nicotine dependence
CPT/HCPCS: 71045; 80048; 80053; 81001; 82274; 82962; 83605; 85025; 85610; 85730; 86850; 86900; 86920; 87040; 87086; 87088; 87641; 93005; 99285; J7030; J7040; P9016; A4216; C1751; J2405

== ENCOUNTER 2017-10-29 16:59 | Emergency (ER) | payer MEDICARE, MEDICAID, SELFPAY ==
[2017-10-29 17:01] VITALS: BP 101/67; PULSE 83; RESP 18; TEMP 37; O2SAT 96; BMI 40.1
[2017-10-29] MEDS: HYDROmorphone 1 MG/ML Syringe SC (18:10)
--- NOTE | 2017-10-29 18:24 | RAD_ITS ---
STUDY: X-RAY - LUMBAR SPINE REASON FOR EXAM: Male, 77 years old. Pain, status post fall one month ago TECHNIQUE: 3 view(s) of the lumbar spine were obtained. COMPARISON: None FINDINGS: Normal lumbar lordosis. There is no substantial scoliosis. There is a normal alignment of the vertebrae. Marginal osteophytic lipping and bridging is seen throughout the lumbar spine. There is multi-level degenerative disc disease with multi-level disc space narrowing. There is no demonstrated fracture. There are status post laminectomy changes of L4 and L5. There are calcified plaques of the abdominal aorta and common iliac arteries. RAD/Lumbar Spine 2 or 3 Views IMPRESSION: Degenerative changes of the spine, as detailed above. Status post laminectomy changes of L4 and L5. Densely calcified plaques of the abdominal aorta and common iliac arteries. There is no evidence of fracture. Electronically Signed: Alex Souza MD at 19:16 EDT , Service support ,
--- NOTE | 2017-10-29 19:06 | ED.VISSUMM ---
- ER Visit Summary Date of Service: 10/29/17 Chief Complaint: Acute on chronic lumbar back pain History of Present Illness: The patient is a 77 M history of chronic back pain. Also history of diabetes, renal insufficiency, renal fib, anemia and status post sepsis with an ICU admission when she developed a GI bleed and to be transferred to [facility]. He is currently at assisted living. When he was initially admitted for the sepsis he had a fall he has had chronic back pain for the last month. Is not really been investigated significantly due to his other ailments at the time. He states he still moving his legs. Denies any bowel or bladder incontinence. Patient is currently a hospice patient. Currently not on anticoagulation due to his GI bleed approximately a month ago. Physical Examination: Older male no acute distress. Vital signs are stable afebrile. Pulse is 96% on room air no signs of hypoxia. HEENT exam unremarkable neck nontender lungs clear to auscultation. Heart regular rhythm no murmur currently. Chest nontender. Abdomen obese soft nontender normal bowel sounds no peritoneal signs. He is moving all 4 extremities. He is to 3+ pitting edema both lower extremities and symmetrical. That is chronic. He is known renal insufficiency. Again no cauda equina. No saddle anesthesia. Back exam is rolled to his right side. His tenderness along his lumbar spine. Is a well-healed prior surgical incision. There is no signs of infection. Currently there is no ecchymosis or bruising. No redness or warmth. Neurologically is awake and alert moving all 4 extremities. Test Results: Plain lumbar spine x-ray was obtained. She is significant degenerative disc disease but no acute compression fracture. No bony lesions. Significant arthritis. Emergency Department Course and Treatment: Patient was treated with subcu Dilaudid. On repeat exam at 1906 he is doing well. I went over the x-rays with the patient and his family. They are comfortable with him being discharged back to the assisted living facility. They are going to follow-up with pain management for possibility of a pain pump versus other treatments. Treatment Plan: Discharged to assisted living. Continue his current oral pain medications and follow-up with pain management. Disposition: Discharge Impression: Acute on chronic back pain Degenerative disc disease of the lumbar spine History of diabetes, renal insufficiency, anemia, atrial fibrillation. This note was generated with [employer] software. It may contain incorrect words, spelling, and punctuation that were not noted in review of the chart prior to signing ED Disposition - Plan for ED Patient: Chief Complaint: Back Referrals: Mary Lou Flores DO [Primary Care Provider] -
--- NOTE | 2017-10-29 19:10 | ED.DEP ---
ED Disposition - Plan for ED Patient: Disposition: Home or Assisted Living Chief Complaint: Back Instructions: ED Chronic Pain Management Referrals: Mary Lou Flores DO [Primary Care Provider] - As Needed Additional Instructions: Call and follow-up with her pain management doctor discuss treatment options such as a pain pump versus different oral medications or even transdermal pain patches.
--- NOTE | 2017-10-29 19:25 | NURSING ---
[facility]ARE TO EXPECTED TO ARRIVE AT 194 TO TAKE PT BACK TO [facility].
[2017-10-29 21:25] VITALS: BP 135/74; PULSE 71; RESP 18; O2SAT 99
--- NOTE | 2017-10-29 21:25 | ED.RN ---
REPORT TO [facility]. PT SKIN P/W/D, RESP EVEN AND UNLABORED, PT A&O X 3, NO DISTRESS NOTED. PT OUT OF ED WITH [facility] FOR TRANSPORT HOME.
== END 2017-10-29 21:25 | disposition home or self-care (01) ==
PROVIDERS: Emergency Provider Emergency Medicine; Family Provider Internal Medicine; PCP Internal Medicine
DX: M51.36 Other intervertebral disc degeneration, lumbar region (principal); M54.5 Low back pain; G89.29 Other chronic pain; I48.91 Unspecified atrial fibrillation; E11.9 Type 2 diabetes mellitus without complications; N28.9 Disorder of kidney and ureter, unspecified; Z79.01 Long term (current) use of anticoagulants; Z79.84 Long term (current) use of oral hypoglycemic drugs; Z79.891 Long term (current) use of opiate analgesic; Z79.899 Other long term (current) drug therapy; Z86.2 Personal history of diseases of the blood and blood-forming organs and certain disorders involving the immune mechanism; Z86.19 Personal history of other infectious and parasitic diseases
CPT/HCPCS: 72100; 96372; 99282